=== PATIENT | female | born 1955 | race Caucasian/White ===

== ENCOUNTER 2016-07-01 11:40 | Inpatient (IN) | payer OTHER, MEDICAID ==
[~2016-07-01] VITALS: Ht 157.5 cm; Wt 67.8 kg
[~2016-07-01 11:40] MED LIST: ALBU18HF INH; ALBU8.5H2 INHALATION; ALPR0.5T8 PO; ASPI-973 PO; CLOTRIMAZOLE TOPICAL; ENOX40DI8 SUBQ; FUR20 PO; GLIM2TAB2 PO; HYDR-3825 PO; HYDR25TA4 PO; LISI-567 PO; METF1000 PO; OXYC-466 PO; PRAV40TA PO; SERT100T PO
[2016-07-01 11:46] VITALS: BP 79/53; PULSE 84; RESP 16; O2SAT 95
--- NOTE | 2016-07-01 12:49 | ED.REPORT ---
HPI-General Illness Date of Service Jul 01, 2016 ED Provider: Chi Brown MD The patient is a 61 year old female with history of diabetes mellitus, hypertension, cirrhosis, anxiety, depression, who presents to the emergency department from urgent care complaining of worsening generalized weakness. The patient had hip/femur surgery 3 months ago and has been declining since. She has also experienced balance issues. She is concerned because she lives alone and is unable to take care of herself. She has also noticed worsening abdominal distention and pain, and weight gain. She had an appointment with her doctor last week but her transportation did not show up. She has needed to have fluid drained from her abdomen in the past. She is unable to get in to see her regular doctor until late July. She denies fever, chills, nausea, vomiting, diarrhea, numbness, focal weakness, dysuria. Nursing Notes Stated Complaint: WEAKNESS Chief Complaint: General Complaint Nursing Notes Reviewed: Yes Allergies: Coded Allergies: No Known Allergies (Verified Allergy, Unknown, 07/01/16) Scheduled Amlodipine (Amlodipine) 2.5 Mg Tablet 2.5 MG PO DAILY Aspirin (Aspirin) 81 Mg Tablet 81 MG PO DAILY Furosemide (Furosemide) 20 Mg Tab 20 MG PO BID Hydrochlorothiazide (Hydrochlorothiazide) 25 Mg Tablet 25 MG PO DAILY Lisinopril (Lisinopril) 10 Mg Tablet 10 MG PO DAILY Metformin (Glucophage) 1,000 Mg Tablet 1,000 MG PO BID Pravastatin (Pravastatin) 40 Mg Tablet 40 MG PO HS Sertraline HCl (Sertraline) 100 Mg Tablet 200 MG PO HS Spironolactone (Spironolactone) 50 Mg Tablet 50 MG PO BID Tiotropium Basehor (Spiriva) 18 Mcg Cap.w.dev 18 MCG IH DAILY Scheduled PRN Albuterol HFA (Proair HFA) 8.5 Gm Hfa.aer.ad 2 PUFFS INHALATION Q4H PRN PRN For Shortness of Breath Alprazolam (Alprazolam) 0.5 Mg Tablet 0.25 MG PO QID PRN PRN For Anxiety oxyCODONE (oxyCODONE) 5 Mg Tablet 7.5 MG PO QID PRN PRN For Pain General Time Seen by MD: 12:40 Chief Complaint Weakness Hx Obtained From: Patient Arrived By: Walk-in Sudden in Onset?: No Onset Occurred: More than a week ago... Symptom Duration: Since onset Location: : Abdomen Quality: Painful Severity: Current: Moderate Severity: Maximum: Moderate Recent Healthcare: No recent doctor visit, No recent hospitalization Similar Sx Previous: Yes Past Medical History Past Medical History Notes: PCP: Dr. Sandy Past Medical History Anxiety Cirrhosis Hepatitis C Diffuse atherosclerotic burden. Reports: Diabetes mellitus, Hypertension, Stroke Reports: Depression Past Surgical History Kwesi's tumors bilaterally carotid endarterectomy, right Leg surgery Reports: Cholecystectomy, Hysterectomy Reports: Back/neck surgery Family History Noncontributory Smoking History Current Every Day Smoker, Light Tobacco Smoker Social History Alcohol Use: Denies alcohol use Drug Use: Denies drug use Other Social History: Lives alone, Local resident Ambulatory Status Independent Review of Systems +weight gain Full Review of Systems Constitutional: Reports: Weakness - generalized, Denies: Chills, Fever Respiratory: Denies: Non-productive cough, Shortness of breath Cardiovascular: Denies: Chest pain GI: Reports: Abdominal pain (and distention), Denies: Constipation, Diarrhea, Nausea, Vomiting Female: Denies: Dysuria Neurologic: Reports: Problem walking, Weakness, Denies: Focal weakness, Numbness Complete sys rev & neg: except as marked. Physical Exam Vital Signs Vital Signs Date Time Temp Pulse Resp B/P Pulse Ox O2 Delivery O2 Flow Rate FiO2 07/01/16 13:29 95 18 95/60 98 Room Air 07/01/16 11:46 37.0 84 16 79/53 95 Room Air Initial VS: Reviewed Head / Eyes: Atraumatic, Normocephalic, PERRL ENT: Mucous membranes moist, Conjunctiva normal, No scleral icterus Neck: Supple, Non-tender, Full range of motion Extremities: Vascular intact, Neuro intact, No tenderness Skin: Warm, Dry, No cyanosis Neurologic: Alert, Oriented, Nonfocal Psychiatric: Mood/affect normal, Behavior normal, Normal thought content General/Constitutional: Awake, Alert, Well appearing Respiratory / Chest: Atraumatic, Breath sounds NL, Breath sounds = bilat, No respiratory distress, No rales, No rhonchi, No wheezing spider angiomata to her chest diffusely Cardiovascular: Heart rate NL, Regular rhythm, Heart sounds NL, Cap refill not delayed, Peripheral circulation NL Lower Ext Edema: Positive: Bilateral 2+, Knee, Pitting Abdomen: No guarding, No rebound Tenderness/Guarding/Rebound: Positive: Tender diffuse (mild) Significant ascites with positive fluid wave Skin: Warm, Dry Color / Condition: Positive: Jaundice present Interpretation & Diagnostics Lab Results Interpretation Result Diagram: 07/01/16 1315 07/01/16 1315 Test 07/01/16 13:15 07/01/16 13:56 White Blood Count 8.8th/mm3 (3.8-10.1) Red Blood Count 4.53mil/mm3 (3.90-5.20) Hemoglobin 13.0g/dL (12.0-15.6) Hematocrit 37.9% (35.0-46.0) Mean Corpuscular Volume 83.7fL (81-100) Mean Corpuscular Hemoglobin 28.7pg (27.0-35.0) Mean Corpuscular Hemoglobin Concent 34.3% (32.0-37.0) Red Cell Distribution Width 17.1% (12.3-15.4) Platelet Count 209bil/L (150-400) Neutrophils (%) (Auto) 74.4% (40-74) Lymphocytes (%) (Auto) 15.9% (14-46) Monocytes (%) (Auto) 9.1% (4-12) Eosinophils (%) (Auto) 0.2% (0-5) Basophils (%) (Auto) 0.2% (0-3) Sodium Level 132mEq/L (134-144) Potassium Level 3.9mEq/L (3.5-5.2) Chloride Level 91mEq/L (97-108) Carbon Dioxide Level 26mmol/L (18-29) Blood Urea Nitrogen 62mg/dL (8-27) Creatinine 3.01mg/dL (0.57-1.00) Estimat Glomerular Filtration Rate 23mL/min (>59) Glucose Level 156mg/dL (60-99) Calcium Level 8.7mg/dL (8.5-10.1) Magnesium Level 1.8mg/dL (1.6-2.6) Total Bilirubin 0.5mg/dL (0.0-1.2) Aspartate Amino Transf (AST/SGOT) 51U/L (0-50) Alanine Aminotransferase (ALT/SGPT) 25U/L (0-32) Alkaline Phosphatase 97U/L (25-165) Total Protein 7.3g/dL (6.4-8.4) Albumin 2.6g/dL (3.4-5.0) Hold Vazquez Top Tube Received (Received) Prothrombin Time 12.2sec (8.1-12.5) Prothromb Time International Ratio 1.14ratio Ammonia 31ug/dL (18-53) Procedures Lab Results Interpretation Result Diagram: 07/01/16 1315 07/01/16 1315 Test 07/01/16 13:15 07/01/16 13:56 White Blood Count 8.8th/mm3 (3.8-10.1) Red Blood Count 4.53mil/mm3 (3.90-5.20) Hemoglobin 13.0g/dL (12.0-15.6) Hematocrit 37.9% (35.0-46.0) Mean Corpuscular Volume 83.7fL (81-100) Mean Corpuscular Hemoglobin 28.7pg (27.0-35.0) Mean Corpuscular Hemoglobin Concent 34.3% (32.0-37.0) Red Cell Distribution Width 17.1% (12.3-15.4) Platelet Count 209bil/L (150-400) Neutrophils (%) (Auto) 74.4% (40-74) Lymphocytes (%) (Auto) 15.9% (14-46) Monocytes (%) (Auto) 9.1% (4-12) Eosinophils (%) (Auto) 0.2% (0-5) Basophils (%) (Auto) 0.2% (0-3) Sodium Level 132mEq/L (134-144) Potassium Level 3.9mEq/L (3.5-5.2) Chloride Level 91mEq/L (97-108) Carbon Dioxide Level 26mmol/L (18-29) Blood Urea Nitrogen 62mg/dL (8-27) Creatinine 3.01mg/dL (0.57-1.00) Estimat Glomerular Filtration Rate 23mL/min (>59) Glucose Level 156mg/dL (60-99) Calcium Level 8.7mg/dL (8.5-10.1) Magnesium Level 1.8mg/dL (1.6-2.6) Total Bilirubin 0.5mg/dL (0.0-1.2) Aspartate Amino Transf (AST/SGOT) 51U/L (0-50) Alanine Aminotransferase (ALT/SGPT) 25U/L (0-32) Alkaline Phosphatase 97U/L (25-165) Total Protein 7.3g/dL (6.4-8.4) Albumin 2.6g/dL (3.4-5.0) Hold Vazqeuz Top Tube Received (Received) Prothrombin Time 12.2sec (8.1-12.5) Prothromb Time International Ratio 1.14ratio Ammonia 31ug/dL (18-53) Re-Eval/Medical Decision Med Decision/Clinical Course The patient is a 61-year-old female who presents to the emergency Department with complaints of generalized weakness worsening ascites, fatigue and difficulty caring for herself at home in the setting of recent hip surgery. Upon arrival she is afebrile and hemodynamically stable. Examination is notable for significant ascites and in the past she has had therapeutic paracentesis productive of 9 L of ascites fluid. LABS: CBC unremarkable, CMP: sodium 132, acute kidney injury with a BUN 62 and creatinine 3.01, glucose 156, mildly elevated transaminases, INR 1.14 At this time, my suspicion for spontaneous bacterial peritonitis is relatively low. I suspect that much of her symptoms are related to her profound ascites. I discussed with the patient performing diagnostic/therapeutic paracentesis at the bedside to explain that we would only be able to remove 4 L. I suspect that the patient will not achieve adequate symptom relief with only 4 L paracentesis and that she would likely benefit more from greater fluid removal in the inpatient setting with administration of albumin. We are not able to administer albumin here in the emergency department or do large volume paracentesis. Moreover, the patient has been having significant difficulty with ambulation in the setting of her recent surgery and has acute kidney injury further up. Her clinical picture. I feel that the patient requires admission for further workup and management. I discussed this with the hospitalist was in agreement. The patient was transferred in stable condition. Source of Hx: Old records Time of Eval: 13:58 Re-Evaluation/Progress Note: Discussed risks and benefits of the procedure. All questions were addressed. Time of Eval: 14:02 Re-Evaluation/Progress Note: Bedside ultrasound not working. Unable to complete procedure. Will admit. Consultation : Referral / Consult Name: Toi Velasco MD Consulted With: Hospitalist Call Returned at: 15:07 Licensed Marine Engineer: Will see patient, Agrees with eval, Agrees with plan, Accepts admit Counseled Regarding: Diagnosis, Lab results, Need for admission Discharge & Departure Primary Impression: Ascites Ascites type: other type Qualified Code: R18.8 - Other ascites Additional Impressions: Weakness generalized End stage liver disease Acute kidney injury Disposition: ADMITTED TO HOSPITAL Discharge Condition All VS Reviewed: Yes Condition: Stable Referrals: Deedee Sandy MD (PCP) Crit Care Except Billable Proc Time Spent: 75-104 minutes Services Performed: Patient management by me, Time spent at bedside, Reviewing test results, Reviewing imaging, Discussing patient care, Documentation in record, Time with fam/surrogate Scribe Attestation Portions of this note were transcribed by Erum Olivier. I, Dr. Brown personally performed the history, physical exam and medical decision-making; I reviewed and confirmed the accuracy of the information in the transcribed note. Signed by: Jacinda Zhang, 07/01/2016 and 1515. copies to: Deedee Sandy MD, Beck O MD Jul 01, 2016 12:49 Erum Olivier Jul 01, 2016 13:39
[2016-07-01 13:24] LABS: BASOPHILS % (AUTO) 0.2 % (0-3); EOSINOPHILS % (AUTO) 0.2 % (0-5); MONOCYTES % (AUTO) 9.1 % (4-12); Mean Corpuscular Hemoglobin 28.7 pg (27.0-35.0); Mean Corpuscular Volume 83.7 fL (81-100); NEUTROPHILS % (AUTO) 74.4 % (40-74); Platelet Count 209 bil/L (150-400)
[2016-07-01 13:29] VITALS: BP 95/60; PULSE 95; RESP 18; O2SAT 98
[2016-07-01 13:47] LABS: INR 1.13 ratio
[2016-07-01] MEDS ORDERED: HYDROmorphone 1 mg/mL Inj IVPUSH ONE (13:50)
[2016-07-01] MEDS ORDERED: Ondansetron 2 mg/mL 2 mL Inj IVPUSH ONE (13:50)
[2016-07-01 13:51] LABS: Magnesium 1.8 mg/dL (1.6-2.6)
[2016-07-01 14:32] LABS: INR 1.14 ratio
[2016-07-01] MEDS ORDERED: Alum-Mag Hydrox-Simeth 30 mL Suspension PO PRN (15:35)
[2016-07-01] MEDS ORDERED: Ondansetron 2 mg/mL 2 mL Inj IVPUSH PRN (15:35)
[2016-07-01] MEDS ORDERED: Polyethylene Glycol (PEG) 17 Gm Powder PO PRN (15:35)
[2016-07-01] MEDS ORDERED: SERT100T9 PO (15:59)
[2016-07-01] MEDS ORDERED: SPIR50TA2 PO (16:00)
[2016-07-01] MEDS ORDERED: OXYC5TAB72 PO (16:03)
[2016-07-01] MEDS ORDERED: LISI10TA PO (16:11)
[2016-07-01] MEDS ORDERED: AMLO2.5T PO (16:15)
[2016-07-01] MEDS ORDERED: TIOT18CA3 IH (16:16)
[2016-07-01] MEDS: HYDROmorphone 0.5 mg/0.5 mL iSecure Syringe IVPUSH PRN ×2 (17:30→22:55)
[2016-07-01] MEDS ORDERED: Glucose 40% Oral Gel 15 Gm Tube PO PRN (17:40)
[2016-07-01 17:41] VITALS: BP 109/69; PULSE 103; RESP 19; O2SAT 96
[2016-07-01 18:10] VITALS: PULSE 107
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
[2016-07-01 20:43] VITALS: BP 107/80; PULSE 105; RESP 16; O2SAT 95
--- NOTE | 2016-07-01 21:20 | PCM.HPMED ---
Subjective Date of Service Jul 01, 2016 Primary Provider: Admitting Physician: Primary Care Physician: Deedee Sandy MD Attending Physician: Admit Status: From the Emergency Department, Full Admit, Remote Telemetry Chief Complaint: Worsening generalized weakness History of Present Illness: Tayla Milan is a 61 year old female with Diabetes mellitus, hypertension, cirrhosis, anxiety, depression, who presents to the emergency department from urgent care complaining of worsening generalized weakness. The patient had hip/femur surgery 3 months ago and has been declining ever since. She has also experienced balance issues and some vertigo. She is concerned because she lives alone and is unable to take care of herself. She has also noticed worsening abdominal distention and pain (pain is 8/10 intensity , diffuse without any radiation, pain exacerbated by movement), and weight gain. She had an appointment with her doctor last week but her transportation did not show up. She has needed to have fluid drained from her abdomen in the past and recently had a paracentesis at the radiology department recently and had 9 liters out. She denies fever, chills, nausea, vomiting, diarrhea, numbness , focal weakness, dysuria. She is having loose stools. Case discussed with Dr Brown. He could not perform a paracentesis as the ultrasound machine in the ED was broken Review of Systems: Pertinent positives as noted in HPI. All other systems were reviewed and are negative Allergies Coded Allergies: No Known Allergies (Verified Allergy, Unknown, 07/01/16) Home Medications Tayla Milan [id number] 1955 07/01/2016 11:10 AM 07/08 ALBENDAZOLE alprazolam 0.25 mg tablet take 1 tablet by oral route 4 times every day PRN amlodipine 5 mg tablet take 1 tablet by oral route every day Aspirin Low Dose 81 mg tablet,delayed release take 1 tablet by oral route every day hydrochlorothiazide 12.5 mg capsule take 1 Capsule by oral route every day K-Tab 10 mEq tablet,extended release take 1 Tablet by oral route every day with food Lasix 20 mg tablet take 1 tablet by oral route every day lisinopril 40 mg Tab take 1 tablet (40MG) by oral route every day metformin 1,000 mg tablet take 1 tablet by oral route every day with morning and evening meals oxycodone-acetaminophen 7.5 mg-325 mg tablet take 1 tablet by oral route every 6 hours as needed Pravachol 40 mg tablet take 1 tablet by oral route every day ProAir HFA 90 mcg/actuation aerosol inhaler inhale 2 puff by inhalation route every 4 - 6 hours as needed Spiriva Respimat 1.25 mcg/actuation solution for inhalation inhale 2 puff by inhalation route every day spironolactone 50 mg tablet take 1 tablet by oral route every day Zoloft 50 mg tablet take 3 Tablet by oral route every day PMH Hypertension. Type 2 diabetes mellitus. Diffuse atherosclerotic burden. a. Nuclear medicine stress test (April 24, 2014) showed no evidence of myocardial ischemia or infarction; normal myocardial perfusion; LVEF 86% without segmental wall motion defects. b. Cerebrovascular disease. c. Peripheral arterial disease Severe cervical and lumbar degenerative disk disease with spinal stenoses. Chronic Hepatitis C with genotype 1, on ribavirin and Harvoni Liver cirrhosis . Surgical History Status post cholecystectomy. Status post hysterectomy. Status post multiple back surgeries. Family History Family history is positive for type 2 diabetes mellitus and coronary artery disease. Social History Hx Alcohol Use: No Hx Substance Use: No Hx Tobacco Use: Yes Smoking Status: Current Every Day Smoker, Light Tobacco Smoker Living Arrangement: Alone Exam Vital Signs Vital Sign - Last Date Time Temp Pulse Resp B/P Pulse Ox O2 Delivery O2 Flow Rate FiO2 07/01/16 13:29 95 18 95/60 98 Room Air 07/01/16 11:46 37.0 Exam General: Alert, Oriented X3, Cooperative, No acute Distress malnourished skinny woman Eyes: PERRLA, Scleral Anicteric Mouth: Mouth Normal, Mucous Membranes Moist/[place] Neck: Supple, no Thyromegaly, trachea central. Chest & Lungs: Clear to auscultation & percussion, No adventitious breath sounds, no crackles, no wheeze Cardiovascular: Normal S1, Normal S2, No Murmurs/Rubs/Gallops, Regular Rate/ Rhythm, Murmur, Other (No JVD, no peripheral edema) Pulses: Radial (present and equal), Dorsalis Pedi (present and equal) Abdomen: Soft, diffuse tender, + distended, Normoactive bowel tones. Musculoskeletal: Unremarkable. Normal range of motion, no swollen or erythematous joints Extremities: 2 + leg/foot edema, no cyanosis, no clubbing. Skin: No rashes. Warm and dry, no erythematous areas Neurological: Grossly neurologically intact, has generalized weakness, Normal Speech, Sensation Intact Lymphatic: Lymph nodes Cervical and Axillary not palpable. Lab and Diagnostics Labs Laboratory Tests Test 07/01/16 13:15 07/01/16 13:56 White Blood Count 8.8th/mm3 (3.8-10.1) Red Blood Count 4.53mil/mm3 (3.90-5.20) Hemoglobin 13.0g/dL (12.0-15.6) Hematocrit 37.9% (35.0-46.0) Mean Corpuscular Volume 83.7fL (81-100) Mean Corpuscular Hemoglobin 28.7pg (27.0-35.0) Mean Corpuscular Hemoglobin Concent 34.3% (32.0-37.0) Red Cell Distribution Width 17.1% (12.3-15.4) Platelet Count 209bil/L (150-400) Neutrophils (%) (Auto) 74.4% (40-74) Lymphocytes (%) (Auto) 15.9% (14-46) Monocytes (%) (Auto) 9.1% (4-12) Eosinophils (%) (Auto) 0.2% (0-5) Basophils (%) (Auto) 0.2% (0-3) Prothrombin Time 12.1sec (8.1-12.5) 12.2sec (8.1-12.5) Prothromb Time International Ratio 1.13ratio 1.14ratio Sodium Level 132mEq/L (134-144) Potassium Level 3.9mEq/L (3.5-5.2) Chloride Level 91mEq/L (97-108) Carbon Dioxide Level 26mmol/L (18-29) Blood Urea Nitrogen 62mg/dL (8-27) Creatinine 3.01mg/dL (0.57-1.00) Estimat Glomerular Filtration Rate 23mL/min (>59) Glucose Level 156mg/dL (60-99) Calcium Level 8.7mg/dL (8.5-10.1) Magnesium Level 1.8mg/dL (1.6-2.6) Total Bilirubin 0.5mg/dL (0.0-1.2) Aspartate Amino Transf (AST/SGOT) 51U/L (0-50) Alanine Aminotransferase (ALT/SGPT) 25U/L (0-32) Alkaline Phosphatase 97U/L (25-165) Total Protein 7.3g/dL (6.4-8.4) Albumin 2.6g/dL (3.4-5.0) Hold Vazquez Top Tube Received (Received) Ammonia 31ug/dL (18-53) Microbiology Result Diagram: 07/01/16 1315 07/01/16 1315 Assessment & Plan Tayla Milan is a 61 year old female with Diabetes mellitus, hypertension, cirrhosis, anxiety, depression, who presents to the emergency department from urgent care complaining of worsening generalized weakness. 1. Generalized weakness. Present on admission Likely multifactorial with Uremia due to acute renal failure, worsening cirrhosis or a infection. Malnutrition and failure to thrive could also be considered - treat underlying cause - Nutritional consult - Physical therapy and curtain worker consult 2. Worsening Ascites with acute on chronic abdominal pain due to Cirrhosis. Present on admission Low suspicion for Spontaneous bacterial peritonitis but will send peritoneal blood for analysis. She may need pleural X device to facilitate future paracentesis. Patient previously treated with ribavirin and Harvoni followed outpatient by Dr Duncan - nothing by mouth after midnight - ultrasound guided paracentesis planned for tomorrow - Dilaudid 0.5 mg IV q 4 hours PRN pain - no antibiotics is indicated at this time - recommend low sodium diet - consider GI consultation 3. Acute Kidney injury. Present on admission Could be pre renal azotemia from volume loss through diarrhea. Hepatorenal syndrome is also a concern - avoid nephrotoxic insults - holding diuretics as the patient is intravascular depleted - will consult Nephrology in the morning 4. Hypertension. Hypotensive on admission - holding Amlodipine 5 mg daily, Lisinopril 40 mg daily and HCTZ 5. Type 2 diabetes mellitus Glyburide will cause hypoglycemia as the patient is NPO for procedure and Metformin held to minimize possibility for lactic acidosis. - holding Glyburide and Metformin - low correction algorithm with Lispro 6. Chronic bronchitis related to ongoing tobacco abuse. Clinically without any symptoms of acute exacerbation such as change in sputum or coughing. - DuoNeb (albuterol 2.5 mg plus ipratropium 0.5 mg) by nebulizer as needed. - Symbicort 160/4.5 mcg two inhalations b.i.d. 7. Nicotine Dependence. Cessation was discussed and encouraged - Nicotine patch upon request - Acetaminophen as needed for mild pain/fever/headache - Bowel regimen as needed - Antiemetic as needed Patient admitted under inpatient status with expected length of stay > 2 midnights for severity of present symptoms, complexities of treatment plan and risk for adverse event . Resuscitation Status: CPR: Attempt Resuscitation Toi Velasco MD Jul 01, 2016 15:34
[2016-07-01] MEDS: Insulin LISPRO 300 Unit/3 mL Inj SUBQ SCH (22:00)
[2016-07-02] VITALS (18 sets, daily range): BP systolic 80–110; BP diastolic 42–69; PULSE 80–105; RESP 16–24; O2SAT 91–99
[2016-07-02] MEDS ORDERED: Albuterol 2.5 mg/3 mL Inhalation Solution NEB PRN (00:50)
--- NOTE | 2016-07-02 01:45 | NUR ---
Vitals Pt comfortable, pain and anxiety under control. Requesting to sleep without being disturbed, till next dose of pain meds due. Pt on tele, vitals have been stable. Vitals done at 2100, will recheck again at 0300. LAND MEASURER aware.
[2016-07-02] MEDS ORDERED: Albumin 25% 50 GM in IV Premix 1 EACH IV ONE (07:15)
[2016-07-02] MEDS: Insulin LISPRO 300 Unit/3 mL Inj SUBQ SCH ×4 (08:00→21:35)
[2016-07-02] MEDS: Tiotropium 18mcg/Cap 5 Capsule Inhaler Kit INHALATION SCH (08:30)
[2016-07-02] MEDS: HYDROmorphone 0.5 mg/0.5 mL iSecure Syringe IVPUSH PRN ×3 (09:23→23:41)
[2016-07-02] MEDS ORDERED: 0.9% Sodium Chloride 1,000 ML IV SCH (10:00)
[2016-07-02] MEDS ORDERED: 0.9% Sodium Chloride 250 ML ONE (10:01)
[2016-07-02] MEDS: Albumin 25% 25 GM in IV Premix 1 EACH IV ONE ×2 (10:19→11:32)
--- NOTE | 2016-07-02 10:55 | PCM.CHPMED ---
Subjective Date of Service: Jul 02, 2016 Provider requesting consult: Toi Velasco MD Primary Physician: Admitting Physician: Toi Velasco MD Primary Care Physician: Deedee Sandy MD Attending Physician: oTi Velasco MD Chief Complaint: Chief Complaint: NEPHROLOGY CONSULTATION Acute kidney injury History of Present Illness: This is a 61 year old woman with past medical history significant for DM2, hypertension, cirrhosis 2/2 chronic hepatitis C post treatment, and 3 month history of health decline after her hip surgery 3 month ago who presented to the [facility] ED due to weakness and worsening ascites. The nephrology service is consulted due to acute kidney injury. The patient is a poor historian and unsure of much of her history. She has noticed that after he hip surgery she has had worsening issues with fluid and has had increasing abdominal distention and has gained weight. The patient has had one paracentesis, she is unsure when , but the records suggest May 27 2016. No fluid studies are available. The patient has recently had her diuretics adjusted recently. Her lasix has been increased to 40 mg daily. She is also on spironolactone 50 mg, HCTZ 12.5 mg. The patient denies any fevers, chills, nausea, or vomiting. She noted some diarrhea. She denies any dysuria or decreased urine output. The patient is very distressed and tearful. Review of Systems: ROS is negative except as noted above in the HPI. PMH Past Medical History Hypertension. Type 2 diabetes mellitus. Diffuse atherosclerotic burden. a. Nuclear medicine stress test (April 24, 2014) showed no evidence of myocardial ischemia or infarction; normal myocardial perfusion; LVEF 86% without segmental wall motion defects. b. Cerebrovascular disease. c. Peripheral arterial disease Severe cervical and lumbar degenerative disk disease with spinal stenoses. Chronic Hepatitis C with genotype 1, on ribavirin and Harvoni Liver cirrhosis Bedside Blood Glucose: 139 Surgical History Status post cholecystectomy. Status post hysterectomy. Status post multiple back surgeries. Home Medications Tayla Milan [phone] 1955 07/01/2016 11:10 AM 07/08 ALBENDAZOLE alprazolam 0.25 mg tablet take 1 tablet by oral route 4 times every day PRN amlodipine 5 mg tablet take 1 tablet by oral route every day Aspirin Low Dose 81 mg tablet,delayed release take 1 tablet by oral route every day hydrochlorothiazide 12.5 mg capsule take 1 Capsule by oral route every day K-Tab 10 mEq tablet,extended release take 1 Tablet by oral route every day with food Lasix 20 mg tablet take 1 tablet by oral route every day lisinopril 40 mg Tab take 1 tablet (40MG) by oral route every day metformin 1,000 mg tablet take 1 tablet by oral route every day with morning and evening meals oxycodone-acetaminophen 7.5 mg-325 mg tablet take 1 tablet by oral route every 6 hours as needed Pravachol 40 mg tablet take 1 tablet by oral route every day ProAir HFA 90 mcg/actuation aerosol inhaler inhale 2 puff by inhalation route every 4 - 6 hours as needed Spiriva Respimat 1.25 mcg/actuation solution for inhalation inhale 2 puff by inhalation route every day spironolactone 50 mg tablet take 1 tablet by oral route every day Zoloft 50 mg tablet take 3 Tablet by oral route every day Allergies: Coded Allergies: No Known Allergies (Verified Allergy, Unknown, 07/01/16) Social History Hx Alcohol Use: NoHx Substance Use: NoHx Tobacco Use: Yes Smoking Status: Current Every Day Smoker Light Tobacco Smoker Living Arrangement: Alone Exam Vital Signs Vital Sign - Last Date Time Temp Pulse Resp B/P Pulse Ox O2 Delivery O2 Flow Rate FiO2 07/02/16 06:08 36.5 92 16 103/61 97 Room Air Intake and Output 07/01/16 07/01/16 07/02/16 Cumulative From/Thru 15:00 23:00 07:00 07/01/16 11:46 - 07/02/16 06:07 Intake Total 400 ml 400 ml Output Total 0 ml 0 ml Balance 400 ml 400 ml Intake Oral 400 ml 400 ml Output Urine Total 0 ml 0 ml # Bowel Movements 0 0 General: Alert, Oriented X3, Cooperative, Mild Distress Head: Normal Eyes: PERRLA, EOMI Mouth: Mucous Membranes Dry Neck: Other (skin tenting) Chest & Lungs: Clear to auscultation & percussion Cardiovascular: Normal S1, Normal S2, Other (tachycardic) Abdomen: Tender (mild, diffuse), Distended, Normoactive bowel tones, Tympanitic , Soft Genitourinary: [place] Absent Extremities: Other (skin wrinkling on bilateral extremities ) Neurological: Grossly Neurologically Intact, Cranial Nerves 2-12 Intact Lab and Diagnostics Result Diagram: 07/01/16 1315 07/02/16 0525 Assessment & Plan Assessment This is a 61 year old woman with past medical history significant for DM2, hypertension, cirrhosis 2/2 chronic hepatitis C post treatment, and 3 month history of health decline after her hip surgery 3 month ago who presented to the [facility] ED due to weakness and worsening ascites. Acute kidney injury -Baseline Cr normal -Etiology likely due to prerenal azotemia from significant diuresis, patient is very dry on exam -Differential includes ATN, hepatorenal syndrome -UA, urine sodium, urine creatinine, urine protein -Paracentesis today, recommend fluid studies -If patient's Cr worsens despite repletion of fluid status would argue more towards hepatorenal syndrome -agree with albumin infusion per hospitalist team but would start NS at 80 cc/ hr after that -patient is intravascularly depleted judging by UA Hypovolemic hyponatremia -Secondary to aggressive diuretics -Although there is likely a chronic component of hypervolemic hyponatremia secondary to cirrhosis -continue to monitor Thank you for allowing us to participate in the care of this patient. Problems: VTE Mechanical Devices: Intermittant Pneumatic CD Resuscitation Status: CPR: Attempt Resuscitation Michelle Graves DO Jul 02, 2016 10:55 Aleena Neil MD Jul 03, 2016 09:52
--- NOTE | 2016-07-02 11:24 | NUR ---
NUTRITION ASSESSMENT: ASSESS: 61YO F admit with DEYSI, ascites, nephrology consulted. PMHX: Cirrhosis, DM, CVA, HTN,Arthritis,COPD DIET: Heart Healthy, Diabetic. PO bites x 1 meal LABS: Reviewed. Alb 2.3, Ca 8.3, A1c 6.9, Cr 3.45, BUN 66, Glu 139 MEDS: Reviewed GI: 0 BM WEIGHT: 77.2kg BMI: 31.0 =Obese (admit:70kg) EST.NEEDS:2790-5713 kcal; 40-55g pro (30-35kcal/kg; 0.6-0.8g/kg) Acute Kidney Injury as renal labs improve: 85-105g pro (1.2-1.5g/kg pro) COPD/CIRRHOSIS/OBESITY NUTRITION DIAGNOSIS: (1) Increased energy needs related to increased demand for nutrients as evidenced by Cirrhosis/COPD. (2) Altered nutrition related laboratory values related to acute kidney injury as evidenced by elevated BUN/creatinine. INTERVENTION: (1) Recommend diet modification to renal diet pending renal lab trends. Continue diabetic heart healthy diet for now. MONITOR/EVALUATE: PO intake, lab values, diet modification. F/U per moderate risk.
--- NOTE | 2016-07-02 11:33 | NUR ---
DELAY ALBUMIN Delay is due to use of improper tubing, corrected and infusing properly.
[2016-07-02 12:10] LABS: APPEARANCE,URINE HAZY (CLEAR,HAZY); COLOR,URINE DARK YELLOW (YELLOW); OCCULT BLOOD,URINE TRACE (NEGATIVE); PH,URINE 5.5 (5.0-8.0); UROBILINOGEN,URINE NORMAL (NORMAL)
[2016-07-02] MEDS: 0.9% Sodium Chloride 1,000 ML IV SCH ×2 (13:05→22:56)
--- NOTE | 2016-07-02 13:21 | PCM.PNMED ---
Subjective Date of Service Jul 02, 2016 Subjective Awaiting paracenteses. Renal function continues to worsen. Denies fever. Denies urinary complaint Exam Vital Signs Vital Sign - Last Date Time Temp Pulse Resp B/P Pulse Ox O2 Delivery O2 Flow Rate FiO2 07/02/16 11:55 36.9 95 20 102/62 07/02/16 11:10 94 Room Air Intake and Output 07/01/16 07/01/16 07/02/16 Cumulative From/Thru 15:00 23:00 07:00 07/01/16 11:46 - 07/02/16 06:07 Intake Total 400 ml 400 ml Output Total 0 ml 0 ml Balance 400 ml 400 ml Intake Oral 400 ml 400 ml Output Urine Total 0 ml 0 ml # Bowel Movements 0 0 Exam General: Alert, Oriented X3, Cooperative, No acute Distress malnourished skinny woman Eyes: PERRLA, Scleral Anicteric Mouth: Mouth Normal, Mucous Membranes Moist/[place] Neck: Supple, no Thyromegaly, trachea central. Chest & Lungs: Clear to auscultation & percussion, No adventitious breath sounds, no crackles, no wheeze Cardiovascular: Normal S1, Normal S2, No Murmurs/Rubs/Gallops, Regular Rate/ Rhythm, Murmur, Other (No JVD, no peripheral edema) Pulses: Radial (present and equal), Dorsalis Pedi (present and equal) Abdomen: Soft, diffuse tender, + distended, huge ascites. Normoactive bowel tones. Musculoskeletal: Unremarkable. Normal range of motion, no swollen or erythematous joints Extremities: 2 + leg/foot edema, no cyanosis, no clubbing. Skin: No rashes. Warm and dry, no erythematous areas Neurological: Grossly neurologically intact, has generalized weakness, Normal Speech, Sensation Intact Lymphatic: Lymph nodes Cervical and Axillary not palpable. IVs and Medications Medications Reviewed: Medications were reviewed in detail Lab and Diagnostics Result Diagram: 07/01/16 1315 07/02/16 0525 Assessment & Plan Tayla Milan is a 61 year old female with Diabetes mellitus, hypertension, cirrhosis, anxiety, depression, who presents to the emergency department from urgent care complaining of worsening generalized weakness. #. Acute Kidney injury. Present on admission -Could be pre renal azotemia from volume loss through diarrhea. Hepatorenal syndrome is also a concern -Baseline creatinine 0.3, creatinine 3.45 now - will give albumin challenge, 1 g/kg. will also start NS at 80ml/h - avoid nephrotoxic insults - holding diuretics as the patient is intravascular depleted - consulted Nephrology # . Worsening Ascites with acute on chronic abdominal pain due to Cirrhosis. Present on admission Low suspicion for Spontaneous bacterial peritonitis but will send peritoneal blood for analysis. She may need pleural X device to facilitate future paracentesis. Patient previously treated with ribavirin and Harvoni followed outpatient by Dr Duncan - ultrasound guided paracentesis planned for today - Dilaudid 0.5 mg IV q 4 hours PRN pain - will start ceftriaxone for UTI - recommend low sodium diet # UTI -Asymptomatic, pyuria in urine -Urine culture sent - will start ceftriaxone #. Generalized weakness. Present on admission Likely multifactorial with Uremia due to acute renal failure, worsening cirrhosis ,UTI,dehydration - treat underlying cause #. Hypertension. Hypotensive on admission - holding Amlodipine 5 mg daily, Lisinopril 40 mg daily and HCTZ #. Type 2 diabetes mellitus Glyburide will cause hypoglycemia as the patient is NPO for procedure and Metformin held to minimize possibility for lactic acidosis. - holding Glyburide and Metformin - low correction algorithm with Lispro #. Chronic bronchitis related to ongoing tobacco abuse. Clinically without any symptoms of acute exacerbation such as change in sputum or coughing. - DuoNeb (albuterol 2.5 mg plus ipratropium 0.5 mg) by nebulizer as needed. - Symbicort 160/4.5 mcg two inhalations b.i.d. #. Nicotine Dependence. Cessation was discussed and encouraged - Nicotine patch upon request Disposition: Anticipate discharge 2-3 days VTE Mechanical Devices: Intermittant Pneumatic CD Resuscitation Status: CPR: Attempt Resuscitation Ilan Maki MD Jul 02, 2016 13:21
--- NOTE | 2016-07-02 15:26 | NUR ---
Social Work Screen Note Data & Assessment: EMR Reviewed. Patient is a 61 y/o female that admitted for ESLD, Ascites and Weakness. Patient's insurance is listed as [employer] and [employer]. Per the patient's H&P the patient lives home alone. Patient's chart states that she does have a POA, but there is no copy on file. Patient's NOK is listed as Leonid Leon [phone]. In rounds it was discussed that patient has a paracentesis scheduled and a neuro consult. SW will continue to follow patient. Plan: It is likely the to patient will discharge home. [employer] will continue to follow patient. Kiara Dewey, JAYLEN, ACM
--- NOTE | 2016-07-02 16:40 | NUR ---
TERI PARACENTESIS ULTRASOUND HERE AND PLACED NEEDLE FOR PROCEDURE. 3500ML ASCITES FLUID OBTAINED. PT AND HER NURSING CARE WERE TRANSFERRED BACK TO ROOM 1008 AT 1635 AND RN TO RN BEDSIDE HAND OFF WAS DONE AND REPORT GIVEN TO ABY Delong RN AND DEBRA Webster RN.
--- NOTE | 2016-07-02 17:12 | NUR ---
RETURN TO UNIT Patient arrived from [facility] via wheelchair at 1640. Able to transfer to bed with minimal assistance, denied nausea and vomiting. Reported 9/10 pain level,Given report from [facility]. Patient given Dilaudid for pain and 100ml of Albumin at 60ml/hr per order.
[2016-07-02] MEDS: ALPRAZolam 0.5 mg Tablet PO PRN (18:18)
[2016-07-02 18:46] LABS: BFWBC 43 /mm3; MONOCYTES,BODY FLUID 18 %; OTHER CELLS,BODY FLUID 35
[2016-07-02] MEDS: cefTRIAXone Inj 1,000 MG in IV Premix 1 EACH IV SCH (21:00)
[2016-07-03] VITALS (7 sets, daily range): BP systolic 107–125; BP diastolic 52–61; PULSE 78–110; RESP 16–20; O2SAT 94–97
[2016-07-03] MEDS: HYDROmorphone 0.5 mg/0.5 mL iSecure Syringe IVPUSH PRN ×5 (05:08→23:17)
--- NOTE | 2016-07-03 05:18 | NUR ---
; paracentesis site dsg c/d/i. Voided 400cc dark janae urine this morning. Up to bsc with one assist.
[2016-07-03] MEDS: Insulin LISPRO 300 Unit/3 mL Inj SUBQ SCH ×4 (08:00→21:07)
[2016-07-03 08:01] LABS: BASOPHILS % (AUTO) 0.3 % (0-3); MONOCYTES % (AUTO) 9.8 % (4-12); Mean Corpuscular Hemoglobin 28.2 pg (27.0-35.0); Mean Corpuscular Volume 84.8 fL (81-100); NEUTROPHILS % (AUTO) 72.3 % (40-74); Platelet Count 135 bil/L (150-400)
[2016-07-03 08:22] LABS: Magnesium 1.9 mg/dL (1.6-2.6); Phosphorus 4.1 mg/dL (2.5-4.9)
[2016-07-03] MEDS: Tiotropium 18mcg/Cap 5 Capsule Inhaler Kit INHALATION SCH (08:34)
[2016-07-03] MEDS ORDERED: Albumin 25% 25 GM in IV Premix 1 EACH IV ONE (08:50)
--- NOTE | 2016-07-03 09:14 | DRSVH ---
PROCEDURE: US GUIDED PARACENTESIS, PRIMARY ([id number]) INDICATIONS: increasing abd distension TECHNIQUE: The indications, alternatives, benefits, risks, and complications of the procedure were explained to the patient. Written informed consent was obtained and placed in the chart. The abdomen and pelvis were examined sonographically, and an appropriate site was chosen for paracentesis. The skin was pre pared and draped in the usual sterile fashion, and 1% lidocaine was infiltrated from the skin down th rough the peritoneal surface. A 19-gauge catheter-covered needle was then introduced into the perito sharla space, the catheter was advanced and the needle was withdrawn, and thereafter peritoneal fluid w as withdrawn. The catheter was then removed and a dressing was applied. The fluid was discarded if the clinician did not order diagnostic testing of the fluid. The attending physician was present, an d personally performed the procedure. COMPARISON: [facility], [place], US GUIDED PARACENTESIS, 05/27/2016, 12:50. FINDINGS: Access site: Midline pelvis Needle: One-Step centesis catheter with introducer needle. Fluid volume and description: 3.6 L of clear peritoneal fluid. Fluid sent for diagnostic testing: Fluid sent for cytology, multiple chemistry panels and therapeutic drainage. Medications: 1% lidocaine for local anaesthesia. Complications: None. IMPRESSION: Successful ultrasound-guided paracentesis. Dictated by: Gunner GARCIA Interpreted: Samantha Dominguez MD on 07/03/2016 at 9:13 Transcribed by: CESIA on 07/03/2016 at 9:13 Approved by: Samantha Dominguez MD, PhD on 07/03/2016 at 16:12
--- NOTE | 2016-07-03 10:59 | PCM.PNMED ---
Subjective Date of Service Jul 03, 2016 Subjective NEPHROLOGY PROGRESS NOTE The patient had 3.5 L out with her paracentesis yesterday, no complications were noted. She feels much better today and states her abdomen is much less distended. She was able to urinate this morning. Exam Vital Signs Vital Sign - Last Date Time Temp Pulse Resp B/P Pulse Ox O2 Delivery O2 Flow Rate FiO2 07/03/16 08:18 78 16 97 Room Air 07/03/16 06:07 36.3 107/52 Intake and Output 07/02/16 07/02/16 07/03/16 Cumulative From/Thru 14:59 22:59 06:59 07/01/16 11:46 - 07/03/16 06:07 Intake Total 1424 ml 1056 ml 2880 ml Output Total 4000 ml 400 ml 4400 ml Balance -2576 ml 656 ml -1520 ml Intake Oral 1156 ml 536 ml 2092 ml IV Total 268 ml 520 ml 788 ml Output Urine Total 500 ml 400 ml 900 ml Other 3500 ml 3500 ml # Bowel Movements 0 0 Exam General: Alert, Oriented X3, Cooperative, Mild Distress Head: Normal Eyes: PERRLA, EOMI Mouth: Mucous Membranes Dry Neck: Other (skin tenting although improved) Chest & Lungs: Clear to auscultation & percussion Cardiovascular: Normal S1, Normal S2, RRR Abdomen: Tender (mild, diffuse), Distended although improved from yesterday, Normoactive bowel tones, Tympanitic, Soft Genitourinary: [place] Absent Extremities: Other (skin wrinkling on bilateral extremities, improved since yesterday) Neurological: Grossly Neurologically Intact, Cranial Nerves 2-12 Intact IVs and Medications Medications Reviewed: Medications were reviewed in detail Lab and Diagnostics Result Diagram: 07/03/1672907/03/16 0730 Assessment & Plan This is a 61 year old woman with past medical history significant for DM2, hypertension, cirrhosis 2/2 chronic hepatitis C post treatment, and 3 month history of health decline after her hip surgery 3 month ago who presented to the [facility] ED due to weakness and worsening ascites. Acute kidney injury -Baseline Cr normal -Etiology likely due to prerenal azotemia from significant diuresis, patient is very dry on exam -Differential includes hepatorenal syndrome, however given improvement with intravascular repletion more suggestive of prerenal azotemia -Patient continues to be dry on exam although improved today -Paracentesis done yesterday, reducing the intraabdominal pressure and subsequently the pressure on her kidneys which may also be contributing to improvement -continue NS at 80 cc/hr for today, reassess tomorrow Decompensated Cirrhosis -Would continue to hold Lasix -Would restart spironolactone at 50 mg in AM and 25 mg in PM -Would consider repeat abdominal imaging, unclear as to why the patient is suddenly decompensating -Concern for development of HCC -No evidence of SBP Hypovolemic hyponatremia, unchanged -Secondary to aggressive diuretics -Although there is likely a chronic component of hypervolemic hyponatremia secondary to cirrhosis -continue to monitor We will continue to follow along with you. VTE Mechanical Devices: Intermittant Pneumatic CD Resuscitation Status: CPR: Attempt Resuscitation Attending Statement Nephrology attending: Patient was seen and examined along with the internal medicine resident today. We have discussed the findings and these are included in the note above. At this point I would like to continue cautious IV hydration and I would also like to increase her spironolactone to 50 mg in the morning and 25 mg in the evening. I would also recommend holding her Lasix for now. She may require another paracentesis in the next 1-2 days. Impression #1 acute kidney injury secondary to dehydration #2 dehydration #3 osteoporosis #4 hepatitis C #5 hyponatremia. Michelle Graves DO Jul 03, 2016 10:59 Vega Kim DO Jul 03, 2016 11:07
--- NOTE | 2016-07-03 13:37 | PCM.PNMED ---
Subjective Date of Service Jul 03, 2016 Subjective Had paracentesis 07/02. 3.5 L ascitic fluid removed. Negative for SBP. Distention/discomfort significantly improved as per patient. Received 75 g albumin 07/02. Will give 25 g. Creatinine Slightly improved. Urine culture growing > 100,000 GNRs. Exam Vital Signs Vital Sign - Last Date Time Temp Pulse Resp B/P Pulse Ox O2 Delivery O2 Flow Rate FiO2 07/03/16 11:04 36.8 95 20 125/61 97 Room Air Intake and Output 07/02/16 07/02/16 07/03/16 Cumulative From/Thru 15:00 23:00 07:00 07/01/16 11:46 - 07/03/16 06:07 Intake Total 1424 ml 1056 ml 2880 ml Output Total 4000 ml 400 ml 4400 ml Balance -2576 ml 656 ml -1520 ml Intake Oral 1156 ml 536 ml 2092 ml IV Total 268 ml 520 ml 788 ml Output Urine Total 500 ml 400 ml 900 ml Other 3500 ml 3500 ml # Bowel Movements 0 0 Exam General: Alert, Oriented X3, Cooperative, No acute Distress malnourished skinny woman Eyes: PERRLA, Scleral Anicteric Mouth: Mouth Normal, Mucous Membranes Moist/[place] Neck: Supple, no Thyromegaly, trachea central. Chest & Lungs: Clear to auscultation & percussion, No adventitious breath sounds, no crackles, no wheeze Cardiovascular: Normal S1, Normal S2, No Murmurs/Rubs/Gallops, Regular Rate/ Rhythm, Murmur, Other (No JVD, no peripheral edema) Pulses: Radial (present and equal), Dorsalis Pedi (present and equal) Abdomen: Soft, diffuse tender, + distended, huge ascites. Normoactive bowel tones. Musculoskeletal: Unremarkable. Normal range of motion, no swollen or erythematous joints Extremities: 2 + leg/foot edema, no cyanosis, no clubbing. Skin: No rashes. Warm and dry, no erythematous areas Neurological: Grossly neurologically intact, has generalized weakness, Normal Speech, Sensation Intact Lymphatic: Lymph nodes Cervical and Axillary not palpable. IVs and Medications Medications Reviewed: Medications were reviewed in detail Lab and Diagnostics Result Diagram: 07/03/16 0730 07/03/16 0730 Assessment & Plan Tayla Milan is a 61 year old female with Diabetes mellitus, hypertension, cirrhosis, anxiety, depression, who presents to the emergency department from urgent care complaining of worsening generalized weakness. #. Acute Kidney Injury . Present on admission -Could be pre renal azotemia from volume loss through diarrhea. Hepatorenal syndrome is also a concern -Baseline creatinine 0.3, initial 3.45 ,3.31 today -Received 75 g albumin 07/02,also on NS at 80ml/h.will give 25gm albumin today , patient clinically dry - avoid nephrotoxic insults - holding diuretics as the patient is intravascular depleted, nephrology planning to restart Aldactone - consulted Nephrology # . Worsening Ascites with acute on chronic abdominal pain due to Cirrhosis. Present on admission -negative for SBP. She may need pleureX device to facilitate future paracentesis. Patient previously treated with ribavirin and Harvoni followed outpatient by Dr Duncan - ultrasound guided paracentesis 07/02,3.5 L fluid removed - Dilaudid 0.5 mg IV q 4 hours PRN pain - on ceftriaxone for UTI # UTI -Asymptomatic, pyuria in urine -Urine culture > 100,000GNRs - on ceftriaxone # thrombocytosis due to cirrhosis -stable #. Generalized weakness. Present on admission Likely multifactorial with Uremia due to acute renal failure, worsening cirrhosis ,UTI,dehydration - treat underlying cause #. Hypertension. Hypotensive on admission - holding Amlodipine 5 mg daily, Lisinopril 40 mg daily and HCTZ #. Type 2 diabetes mellitus Glyburide will cause hypoglycemia as the patient is NPO for procedure and Metformin held to minimize possibility for lactic acidosis. - holding Glyburide and Metformin - low correction algorithm with Lispro #. Chronic bronchitis related to ongoing tobacco abuse. Clinically without any symptoms of acute exacerbation such as change in sputum or coughing. - DuoNeb (albuterol 2.5 mg plus ipratropium 0.5 mg) by nebulizer as needed. - Symbicort 160/4.5 mcg two inhalations b.i.d. #. Nicotine Dependence. Cessation was discussed and encouraged - Nicotine patch upon request Disposition: Anticipate discharge 1-2days VTE Mechanical Devices: Intermittant Pneumatic CD Resuscitation Status: CPR: Attempt Resuscitation Ilan Maki MD Jul 03, 2016 13:37
[2016-07-03] MEDS: 0.9% Sodium Chloride 1,000 ML IV SCH (14:32)
--- NOTE | 2016-07-03 15:44 | NUR ---
AGITATED/PAIN Patient is agitated about being in the hospital, being short with staff during care. Pain is being well controlled with IV dilaudid every 4 hours. Stated abdominal felt better today after paracentesis yesterday. 1 person assist to BSC with FWW. Voiding dark janae urine.
--- NOTE | 2016-07-03 16:32 | NUR ---
Social Work discharge Planning Note Data & Assessment: linotype worker spoke with patient and patient's sister, Ailyn Carrillo [phone], to discuss discharge planning. Prior to admission patient was home with her daughter and patient is likely to discharge home alone or with one of her daughters if they agree to have her in their home. Patient's sister, Mrs. Carrillo, will talk with the patient's daughters about the possibility of the patient discharging to their home. Patient will discharge home with [facility]. [facility] is in network with the patient's [place] [employer]. Patient's sister Ailyn Carrillo should be called if the patient is discharging. SW will continue to follow. Plan: Patient likely to discharge home alone or home with one of her daughters. Patient will have HH when discharged. SW will continue to follow. Kiara Dewey LMSW, ACM
[2016-07-03] MEDS: cefTRIAXone Inj 1,000 MG in IV Premix 1 EACH IV SCH (16:38)
[2016-07-04] VITALS (10 sets, daily range): BP systolic 108–146; BP diastolic 62–83; PULSE 89–103; RESP 14–18; O2SAT 94–98
[2016-07-04] MEDS: 0.9% Sodium Chloride 1,000 ML IV SCH ×2 (04:36→16:08)
--- NOTE | 2016-07-04 05:06 | NUR ---
Mentation At beginning of shift patient appeared to be confused as to what time of the day it was. Patient thought that it was 9am, not 9pm. After reorienting patient a few times, pt was able to be reoriented. Patient has been pleasant throughout the shift, and has been able to sleep the majority of it. Will continue to monitor mentation status, and continue Q1 hr checks.
[2016-07-04] MEDS: Insulin LISPRO 300 Unit/3 mL Inj SUBQ SCH ×4 (08:00→21:00)
[2016-07-04] MEDS: Tiotropium 18mcg/Cap 5 Capsule Inhaler Kit INHALATION SCH (08:17)
[2016-07-04] MEDS: HYDROmorphone 0.5 mg/0.5 mL iSecure Syringe IVPUSH PRN ×2 (08:25→20:58)
--- NOTE | 2016-07-04 11:14 | PCM.PNMED ---
Subjective Date of Service Jul 04, 2016 Subjective Patient's abdominal girth continues to enlarge. Unfortunately as levofloxacin morning none of her morning lab is back. The posterior cervical 100 mils of urine out in the last 24 hours and a +100 mL spot since midnight. She denies any chest pain shortness of breath nausea or vomiting. Exam Vital Signs Vital Sign - Last Date Time Temp Pulse Resp B/P Pulse Ox O2 Delivery O2 Flow Rate FiO2 07/04/16 10:38 36.5 98 16 141/81 98 Room Air Intake and Output 07/03/16 07/03/16 07/04/16 Cumulative From/Thru 15:00 23:00 07:00 07/01/16 11:46 - 07/04/16 06:11 Intake Total 1888 ml 768 ml 5536 ml Output Total 310 ml 400 ml 5110 ml Balance 1578 ml 368 ml 426 ml Intake Oral 960 ml 768 ml 3820 ml IV Total 928 ml 1716 ml Output Urine Total 310 ml 400 ml 1610 ml Other 3500 ml # Voids 3 3 # Bowel Movements 0 0 Exam Neck is supple without adenopathy, thyromegaly, or jugular venous distention. Lungs are clear load breath sounds are diminished with a soft systolic murmur. Abdomen is distended with some mild tympany noted and the abdomen is somewhat tense. She was transiently clubbing cyanosis or edema. Lab and Diagnostics Result Diagram: 07/03/1672907/03/16729 Assessment & Plan Impression #1 acute kidney injury #2 hyponatremia #3 ascites Recommendations #1 field that most likely the patient will benefit from a large volume paracentesis and approximately 1-2 days and we can coordinate that through GI and radiology. VTE Mechanical Devices: Intermittant Pneumatic CD Resuscitation Status: CPR: Attempt Resuscitation Vega Kim DO Jul 04, 2016 11:14
[2016-07-04] MEDS: ALPRAZolam 0.5 mg Tablet PO PRN (11:18)
[2016-07-04 11:29] LABS: Magnesium 1.6 mg/dL (1.6-2.6); Phosphorus 3.3 mg/dL (2.5-4.9)
[2016-07-04 11:33] LABS: BASOPHILS % (AUTO) 0.3 % (0-3); EOSINOPHILS % (AUTO) 1.2 % (0-5); MONOCYTES % (AUTO) 8.4 % (4-12); Mean Corpuscular Hemoglobin 28.6 pg (27.0-35.0); Mean Corpuscular Volume 84.1 fL (81-100); NEUTROPHILS % (AUTO) 78.5 % (40-74); Platelet Count 126 bil/L (150-400)
--- NOTE | 2016-07-04 13:08 | PCM.PNMED ---
Subjective Date of Service Jul 04, 2016 Subjective Kidney function continues to improve On IV fluids and albumin. Nephrology recommending large volume paracenteses in 1-2 days. Exam Vital Signs Vital Sign - Last Date Time Temp Pulse Resp B/P Pulse Ox O2 Delivery O2 Flow Rate FiO2 07/04/16 10:38 36.5 98 16 141/81 98 Room Air Intake and Output 07/03/16 07/03/16 07/04/16 Cumulative From/Thru 15:00 23:00 07:00 07/01/16 11:46 - 07/04/16 06:11 Intake Total 1888 ml 768 ml 5536 ml Output Total 310 ml 400 ml 5110 ml Balance 1578 ml 368 ml 426 ml Intake Oral 960 ml 768 ml 3820 ml IV Total 928 ml 1716 ml Output Urine Total 310 ml 400 ml 1610 ml Other 3500 ml # Voids 3 3 # Bowel Movements 0 0 Exam General: Alert, Oriented X3, Cooperative, No acute Distress malnourished skinny woman Eyes: PERRLA, Scleral Anicteric Mouth: Mouth Normal, Mucous Membranes Moist/[place] Neck: Supple, no Thyromegaly, trachea central. Chest & Lungs: Clear to auscultation & percussion, No adventitious breath sounds, no crackles, no wheeze Cardiovascular: Normal S1, Normal S2, No Murmurs/Rubs/Gallops, Regular Rate/ Rhythm, Murmur, Other (No JVD, no peripheral edema) Pulses: Radial (present and equal), Dorsalis Pedi (present and equal) Abdomen: Soft, diffuse tender, + distended, huge ascites. Normoactive bowel tones. Musculoskeletal: Unremarkable. Normal range of motion, no swollen or erythematous joints Extremities: 2 + leg/foot edema, no cyanosis, no clubbing. Skin: No rashes. Warm and dry, no erythematous areas Neurological: Grossly neurologically intact, has generalized weakness, Normal Speech, Sensation Intact Lymphatic: Lymph nodes Cervical and Axillary not palpable. IVs and Medications Medications Reviewed: Medications were reviewed in detail Lab and Diagnostics Result Diagram: 07/04/16 1048 07/04/16 1048 Assessment & Plan Tayla Milan is a 61 year old female with Diabetes mellitus, hypertension, cirrhosis, anxiety, depression, who presents to the emergency department from urgent care complaining of worsening generalized weakness. #. Acute Kidney Injury . Present on admission -Combination of pre renal azotemia from volume loss through diarrhea and diuretics. Hepatorenal syndrome is also a concern -Baseline creatinine 0.3, initial 3.45 , 2.8 today -Received 75 g albumin 07/02,also on NS at 80ml/h.will give 25gm albumin 07/03, - avoid nephrotoxic insults -Nephrology recommending large volume paracenteses in 1-2 days - consulted Nephrology # . Worsening Ascites with acute on chronic abdominal pain due to Cirrhosis. Present on admission -negative for SBP. She may need pleureX device to facilitate future paracentesis. Patient previously treated with ribavirin and Harvoni followed outpatient by Dr Duncan . HCV reportedly undetectable - ultrasound guided paracentesis 07/02,3.6 L fluid removed - Dilaudid 0.5 mg IV q 4 hours PRN pain - on ceftriaxone for UTI # UTI -Asymptomatic, pyuria in urine -Urine culture > 100,000GNRs - on ceftriaxone # thrombocytosis due to cirrhosis -stable #. Generalized weakness. Present on admission Likely multifactorial with Uremia due to acute renal failure, worsening cirrhosis ,UTI,dehydration - treat underlying cause #. Hypertension. Hypotensive on admission - holding Amlodipine 5 mg daily, Lisinopril 40 mg daily and HCTZ #. Type 2 diabetes mellitus Glyburide will cause hypoglycemia as the patient is NPO for procedure and Metformin held to minimize possibility for lactic acidosis. - holding Glyburide and Metformin - low correction algorithm with Lispro #. Chronic bronchitis related to ongoing tobacco abuse. Clinically without any symptoms of acute exacerbation such as change in sputum or coughing. - DuoNeb (albuterol 2.5 mg plus ipratropium 0.5 mg) by nebulizer as needed. - Symbicort 160/4.5 mcg two inhalations b.i.d. #. Nicotine Dependence. Cessation was discussed and encouraged - Nicotine patch upon request Disposition: Anticipate discharge 2-3 days. Possible large volume paracentesis on Wednesday VTE Mechanical Devices: Intermittant Pneumatic CD Resuscitation Status: CPR: Attempt Resuscitation Ilan Maki MD Jul 04, 2016 13:08
--- NOTE | 2016-07-04 14:20 | NUR ---
Anxiety/Mobility Patient is transferring to [facility] with CGA and use of FWW. Patient feels that she is moving around better. Urinating more than yesterday. Was hoping to be discharged home today, but doctors want to keep patient until wednesday for possible repeat paracentesis. Patient seemed discouraged by this. Tried to help her look at the positive things of continuing to stay, labs continue to improve, mobility is improving and less change of re admitting to hospital.
[2016-07-04] MEDS: cefTRIAXone Inj 1,000 MG in IV Premix 1 EACH IV SCH (16:08)
[2016-07-05] VITALS (10 sets, daily range): BP systolic 121–167; BP diastolic 70–93; PULSE 89–106; RESP 16–18; O2SAT 93–100
[2016-07-05] MEDS: HYDROmorphone 0.5 mg/0.5 mL iSecure Syringe IVPUSH PRN ×5 (01:23→21:55)
[2016-07-05] MEDS: 0.9% Sodium Chloride 1,000 ML IV SCH (03:34)
[2016-07-05 03:43] LABS: INR 1.17 ratio
--- NOTE | 2016-07-05 04:44 | NUR ---
Pain Pt reporting back pain up to 8/10 and per pt IV Dilaudid 0.5mg q4 hrs has kept pain manageable. Pt up to [facility], OPA to void, tolerating activity well. On tele, SR 97.
[2016-07-05] MEDS: Tiotropium 18mcg/Cap 5 Capsule Inhaler Kit INHALATION SCH (07:45)
[2016-07-05] MEDS: Insulin LISPRO 300 Unit/3 mL Inj SUBQ SCH ×4 (07:47→23:09)
[2016-07-05] MEDS: Lactulose 20 Gm/30 mL 30 mL Syrup PO SCH ×3 (09:14→23:00)
--- NOTE | 2016-07-05 11:34 | PCM.PNMED ---
Subjective Date of Service Jul 05, 2016 Subjective The patient is showing some improvement. Taken output in the last 24 hours were 3623 in 1200 out. Her blood pressure was 123/76. She continues to have ascites. This remains non-tense. He denies any chest pain or shortness of breath. Her creatinine continues to improve and today her level was 2.4 mg/dL. Exam Vital Signs Vital Sign - Last Date Time Temp Pulse Resp B/P Pulse Ox O2 Delivery O2 Flow Rate FiO2 07/05/16 08:00 89 07/05/16 05:11 36.8 18 148/84 94 Room Air Intake and Output 07/04/16 07/04/16 07/05/16 Cumulative From/Thru 15:00 23:00 07:00 07/01/16 11:46 - 07/05/16 06:19 Intake Total 1054 ml 1801 ml 1078 ml 9469 ml Output Total 800 ml 400 ml 6310 ml Balance 1054 ml 1001 ml 678 ml 3159 ml Intake Oral 1000 ml 100 ml 4920 ml IV Total 1054 ml 801 ml 978 ml 4549 ml Output Urine Total 800 ml 400 ml 2810 ml Other 3500 ml # Voids 3 # Bowel Movements 0 0 Exam Neck is supple without adenopathy thyromegaly or jugular venous distention. Lungs were clear to auscultation somewhat diminished. Heart was regular rhythmical with a soft systolic murmur. Abdomen was distended with free fluid wave noted. The abdomen is non-tense. Steri-Strips on choice clubbing cyanosis or edema. Lab and Diagnostics Result Diagram: 07/04/16 1048 07/05/16 0250 Assessment & Plan Impression #1 acute kidney injury which appears to be resolving and secondary to intravascular volume depletion number to decompensated cirrhosis with ascites Recommendations #1 I would like to arrange a large volume paracentesis next 1-2 days. In addition we need to stop her IV fluids. VTE Mechanical Devices: Intermittant Pneumatic CD Resuscitation Status: CPR: Attempt Resuscitation Vega Kim DO Jul 05, 2016 11:34
--- NOTE | 2016-07-05 14:05 | PCM.PNMED ---
Subjective Date of Service Jul 05, 2016 Subjective No new complaints. Creatinine continues to improve. Exam Vital Signs Vital Sign - Last Date Time Temp Pulse Resp B/P Pulse Ox O2 Delivery O2 Flow Rate FiO2 07/05/16 08:00 89 07/05/16 05:11 36.8 18 148/84 94 Room Air Intake and Output 07/04/16 07/04/16 07/05/16 Cumulative From/Thru 15:00 23:00 07:00 07/01/16 11:46 - 07/05/16 06:19 Intake Total 1054 ml 1801 ml 1078 ml 9469 ml Output Total 800 ml 400 ml 6310 ml Balance 1054 ml 1001 ml 678 ml 3159 ml Intake Oral 1000 ml 100 ml 4920 ml IV Total 1054 ml 801 ml 978 ml 4549 ml Output Urine Total 800 ml 400 ml 2810 ml Other 3500 ml # Voids 3 # Bowel Movements 0 0 Exam General: Alert, Oriented X3, Cooperative, No acute Distress malnourished skinny woman Eyes: PERRLA, Scleral Anicteric Mouth: Mouth Normal, Mucous Membranes Moist/[place] Neck: Supple, no Thyromegaly, trachea central. Chest & Lungs: Clear to auscultation & percussion, No adventitious breath sounds, no crackles, no wheeze Cardiovascular: Normal S1, Normal S2, No Murmurs/Rubs/Gallops, Regular Rate/ Rhythm, Murmur, Other (No JVD, no peripheral edema) Pulses: Radial (present and equal), Dorsalis Pedi (present and equal) Abdomen: Soft, diffuse tender, + distended, huge ascites. Normoactive bowel tones. Musculoskeletal: Unremarkable. Normal range of motion, no swollen or erythematous joints Extremities: 2 + leg/foot edema, no cyanosis, no clubbing. Skin: No rashes. Warm and dry, no erythematous areas Neurological: Grossly neurologically intact, has generalized weakness, Normal Speech, Sensation Intact Lymphatic: Lymph nodes Cervical and Axillary not palpable. IVs and Medications Medications Reviewed: Medications were reviewed in detail Lab and Diagnostics Result Diagram: 07/04/16 1048 07/05/16 0250 Assessment & Plan Tayla Milan is a 61 year old female with Diabetes mellitus, hypertension, cirrhosis, anxiety, depression, who presents to the emergency department from urgent care complaining of worsening generalized weakness. #. Acute Kidney Injury . Present on admission -Multifactorial : pre renal azotemia from volume loss through diarrhea and diuretics and Hepatorenal syndrome -Baseline creatinine 0.3, initial 3.45 , 2.4 today -Received 75 g albumin 07/02,also on NS at 80ml/h. 25gm albumin 07/03, discontinued IV fluid 07/05/16 -Nephrology recommending large volume paracenteses in 1-2 days. Possibly tomorrow # . Worsening Ascites with acute on chronic abdominal pain due to Cirrhosis. Present on admission -negative for SBP. Patient previously treated with ribavirin and Harvoni followed outpatient by Dr Duncan . HCV reportedly undetectable - ultrasound guided paracentesis 07/02,3.6 L fluid removed - Dilaudid 0.5 mg IV q 4 hours PRN pain - on ceftriaxone for UTI -Ammonia 79, mentation stable, started lactulose # UTI -Asymptomatic, pyuria in urine -Urine culture > 100,000 E coli ,pansensitive - on ceftriaxone, will discontinue tomorrow # thrombocytosis due to cirrhosis -stable #. Generalized weakness. Present on admission Likely multifactorial due to acute renal failure, worsening cirrhosis ,UTI, dehydration - treat underlying cause #. Hypertension. Hypotensive on admission - holding Amlodipine 5 mg daily, Lisinopril 40 mg daily and HCTZ #. Type 2 diabetes mellitus - holding Glyburide and Metformin - low correction algorithm with Lispro #. Chronic bronchitis related to ongoing tobacco abuse. - DuoNeb (albuterol 2.5 mg plus ipratropium 0.5 mg) by nebulizer as needed. - Symbicort 160/4.5 mcg two inhalations b.i.d. #. Nicotine Dependence. Cessation was discussed and encouraged - Nicotine patch upon request Disposition: Anticipate discharge 2-3 days. Possible large volume paracentesis on Wednesday VTE Mechanical Devices: Intermittant Pneumatic CD Resuscitation Status: CPR: Attempt Resuscitation Ilan Maki MD Jul 05, 2016 14:05
--- NOTE | 2016-07-05 14:30 | NUR ---
Activity- Patient forgetful at times. Medicated x 1 for complaint of back pain. Patient ambulated in hallway with walker. Tolerated activity well without increased pain or shortness of breath.
[2016-07-05] MEDS: cefTRIAXone Inj 1,000 MG in IV Premix 1 EACH IV SCH (16:39)
--- NOTE | 2016-07-05 20:06 | NUR ---
2000: Assumed pt care
[2016-07-06] VITALS (8 sets, daily range): BP systolic 112–152; BP diastolic 69–84; PULSE 64–120; RESP 16–21; O2SAT 94–97
--- NOTE | 2016-07-06 04:23 | NUR ---
Meds/Pain Pt refused stool softeners and lactulose, states they don't work. Transitioing to PO pain meds (7.5 mg roxicodone) in anticipation of d/c.
[2016-07-06 06:16] LABS: BASOPHILS % (AUTO) 0.4 % (0-3); EOSINOPHILS % (AUTO) 1.6 % (0-5); MONOCYTES % (AUTO) 13.2 % (4-12); Mean Corpuscular Hemoglobin 28.6 pg (27.0-35.0); Mean Corpuscular Volume 83.6 fL (81-100); Platelet Count 126 bil/L (150-400)
[2016-07-06 06:29] LABS: INR 1.16 ratio
[2016-07-06] MEDS: Insulin LISPRO 300 Unit/3 mL Inj SUBQ SCH ×4 (08:09→23:17)
[2016-07-06] MEDS: Tiotropium 18mcg/Cap 5 Capsule Inhaler Kit INHALATION SCH (08:09)
[2016-07-06] MEDS: Lactulose 20 Gm/30 mL 30 mL Syrup PO SCH ×2 (08:10→19:34)
--- NOTE | 2016-07-06 11:16 | PCM.PNMED ---
Subjective Date of Service Jul 06, 2016 Subjective Overall the patient is unchanged. Her ammonia level is 64 and albumin is 2.4 today. He had 1878 and and 1000 mL severe and out in the last 24 hours. He continues to enlarge and I will go ahead and schedule her for a large volume paracentesis in the morning. Exam Vital Signs Vital Sign - Last Date Time Temp Pulse Resp B/P Pulse Ox O2 Delivery O2 Flow Rate FiO2 07/06/16 10:03 36.6 89 18 127/76 96 Room Air Intake and Output 07/05/16 07/05/16 07/06/16 Cumulative From/Thru 15:00 23:00 07:00 07/01/16 11:46 - 07/06/16 05:39 Intake Total 800 ml 350 ml 16487 ml Output Total 600 ml 700 ml 7610 ml Balance 200 ml -350 ml 3009 ml Intake Oral 800 ml 350 ml 6070 ml IV Total 4549 ml Output Urine Total 600 ml 700 ml 4110 ml Other 3500 ml # Voids 3 # Bowel Movements 0 1 1 Exam Neck is supple without adenopathy thyromegaly but some mild venous distention is noticed at 30. Lungs were clear to auscultation somewhat diminished bilaterally. Her sodium is soft systolic murmur. Abdomen is distended with a fluid wave noted. It is firm but not tense. She is not sure she clubbing cyanosis or edema. Lab and Diagnostics Result Diagram: 07/06/16 0553 07/06/16 0553 Assessment & Plan Impression #1. Acute kidney injury secondary to volume depletion which is resolving number to decompensated cirrhosis Recommendations #1 or go ahead make arrangements for a large volume paracentesis in the morning. VTE Mechanical Devices: Intermittant Pneumatic CD Resuscitation Status: CPR: Attempt Resuscitation Vega Kim DO Jul 06, 2016 11:16
--- NOTE | 2016-07-06 12:40 | PCM.PNMED ---
Subjective Date of Service Jul 06, 2016 Subjective No new complaints. Creatinine continues to improve. Awaiting large volume paracentesis Exam Vital Signs Vital Sign - Last Date Time Temp Pulse Resp B/P Pulse Ox O2 Delivery O2 Flow Rate FiO2 07/06/16 10:03 36.6 89 18 127/76 96 Room Air Intake and Output 07/05/16 07/05/16 07/06/16 Cumulative From/Thru 15:00 23:00 07:00 07/01/16 11:46 - 07/06/16 05:39 Intake Total 800 ml 350 ml 50470 ml Output Total 600 ml 700 ml 7610 ml Balance 200 ml -350 ml 3009 ml Intake Oral 800 ml 350 ml 6070 ml IV Total 4549 ml Output Urine Total 600 ml 700 ml 4110 ml Other 3500 ml # Voids 3 # Bowel Movements 0 1 1 Exam General: Alert, Oriented X3, Cooperative, No acute Distress malnourished skinny woman Eyes: PERRLA, Scleral Anicteric Mouth: Mouth Normal, Mucous Membranes Moist/[place] Neck: Supple, Chest & Lungs: Clear to auscultation & percussion, N Cardiovascular: Normal S1, Normal S2, No Murmurs/Rubs/Gallops, Pulses: Radial (present and equal), Dorsalis Pedi (present and equal) Abdomen: Soft, diffuse tender, + distended, huge ascites. Normoactive bowel tones. Musculoskeletal: Unremarkable. Normal range of motion, no swollen or erythematous joints Extremities: 2 + leg/foot edema, no cyanosis, no clubbing. Skin: No rashes. Warm and dry, no erythematous areas Neurological: Grossly neurologically intact, has generalized weakness, Normal Speech, Sensation Intact Lymphatic: Lymph nodes Cervical and Axillary not palpable. IVs and Medications Medications Reviewed: Medications were reviewed in detail Lab and Diagnostics Result Diagram: 07/06/16 0553 07/06/16 0553 X-Rays, CTs and MRIs PROCEDURE: US GUIDED PARACENTESIS, PRIMARY ([id number]) INDICATIONS: increasing abd distension TECHNIQUE: The indications, alternatives, benefits, risks, and complications of the procedure were explained to the patient. Written informed consent was obtained and placed in the chart. The abdomen and pelvis were examined sonographically, and an appropriate site was chosen for paracentesis. The skin was prepared and draped in the usual sterile fashion, and 1% lidocaine was infiltrated from the skin down through the peritoneal surface. A 19-gauge catheter-covered needle was then introduced into the peritoneal space, the catheter was advanced and the needle was withdrawn, and thereafter peritoneal fluid was withdrawn. The catheter was then removed and a dressing was applied. The fluid was discarded if the clinician did not order diagnostic testing of the fluid. The attending physician was present, and personally performed the procedure. COMPARISON: [facility], US, US GUIDED PARACENTESIS, 05/27/2016, 12: 50. FINDINGS: Access site: Midline pelvis Needle: One-Step centesis catheter with introducer needle. Fluid volume and description: 3.6 L of clear peritoneal fluid. Fluid sent for diagnostic testing: Fluid sent for cytology, multiple chemistry panels and therapeutic drainage. Medications: 1% lidocaine for local anaesthesia. Complications: None. IMPRESSION: Successful ultrasound-guided paracentesis. Dictated by: Gunner GARCIA Interpreted: Samantha Dominguez MD on 07/03/2016 at 9:13 Assessment & Plan Tayla Milan is a 61 year old female with Diabetes mellitus, hypertension, cirrhosis, anxiety, depression, who presents to the emergency department from urgent care complaining of worsening generalized weakness. #. Acute Kidney Injury . Present on admission -Multifactorial : pre renal azotemia from volume loss through diarrhea and diuretics and Hepatorenal syndrome -Baseline creatinine 0.3, initial 3.45 ,1.86 today -Received 75 g albumin 07/02,also treated with NS at 80ml/h. 25gm albumin 07/03 , discontinued IV fluid 07/05/16 -Nephrology recommending large volume paracenteses in 1-2 days. Possibly tomorrow # . Worsening Ascites with acute on chronic abdominal pain due to Cirrhosis. Present on admission -negative for SBP. Patient previously treated with ribavirin and Harvoni followed outpatient by Dr Duncan . HCV reportedly undetectable - ultrasound guided paracentesis 07/02,3.6 L fluid removed - Dilaudid 0.5 mg IV q 4 hours PRN pain - on ceftriaxone for UTI -Ammonia 79, mentation stable, started lactulose # UTI -Asymptomatic, pyuria in urine -Urine culture > 100,000 E coli ,pansensitive - on ceftriaxone, will discontinue tomorrow # thrombocytosis due to cirrhosis -stable #. Generalized weakness. Present on admission Likely multifactorial due to acute renal failure, worsening cirrhosis ,UTI, dehydration - treat underlying cause #. Hypertension. Hypotensive on admission - holding Amlodipine 5 mg daily, Lisinopril 40 mg daily and HCTZ #. Type 2 diabetes mellitus - holding Glyburide and Metformin - low correction algorithm with Lispro #. Chronic bronchitis related to ongoing tobacco abuse. - DuoNeb (albuterol 2.5 mg plus ipratropium 0.5 mg) by nebulizer as needed. - Symbicort 160/4.5 mcg two inhalations b.i.d. #. Nicotine Dependence. Cessation was discussed and encouraged - Nicotine patch upon request Disposition: Anticipate discharge 1-2 days. Possible large volume paracentesis on tomorrow. No IR available for elective procedures today. VTE Mechanical Devices: Intermittant Pneumatic CD Resuscitation Status: CPR: Attempt Resuscitation Ilan Maki MD Jul 06, 2016 12:40
[2016-07-06] MEDS ORDERED: 0.9% Sodium Chloride 250 ML ONE (15:40)
[2016-07-06] MEDS: cefTRIAXone Inj 1,000 MG in IV Premix 1 EACH IV SCH (15:43)
--- NOTE | 2016-07-06 18:54 | NUR ---
MENTATION/ACTIVITY Patient is alert and oriented to person, place and time. Forgetful/Confused at times but can be redirected easily. Oxicodone PO has been effective for pain control. Tolerating liquids PO and her diet well. Denies nausea. No emesis noted. Denies SOB. She got up with 1 PA to the chair. She has been using her call light appropriately.
[2016-07-07] VITALS (21 sets, daily range): BP systolic 87–141; BP diastolic 59–80; PULSE 89–118; RESP 16–24; O2SAT 95–100
--- NOTE | 2016-07-07 05:53 | NUR ---
Pain/activity Pt reporting back pain 02/11, administered 7.5mg Oxycodone which pt reports to "take the edge off." Pt has been restless and reports that her belly is getting bigger and making it more uncomfortable in bed. Pt requested to sit up in chair this morning, Demian alarm placed. Pt on tele, ST 100s-110s with activity. Lactulose given at bedtime, still no BM this shift.
[2016-07-07] MEDS: Lactulose 20 Gm/30 mL 30 mL Syrup PO SCH ×2 (07:45→20:57)
[2016-07-07] MEDS: Insulin LISPRO 300 Unit/3 mL Inj SUBQ SCH ×4 (07:46→20:59)
[2016-07-07] MEDS: Tiotropium 18mcg/Cap 5 Capsule Inhaler Kit INHALATION SCH (08:30)
--- NOTE | 2016-07-07 09:30 | NUR ---
PARACENTESIS US is at the bedside at this time. Paracentesis to follow. Addendum: 07/07/16 at 1143 by ANDRE REMY RN PARACENTESIS Per ANYA Klein-7,400 ml of fluid has been obtained at this time. SBP-80's. Patient denies pain/nausea/SOB. Tolerating procedure well. Dr. Mkai made aware. Per Paracentesis should be discontinued at this time. Albumin to be infused. Paracentesis d/cd and pharmacy was notified RE: Albumin infusion. Will continue to monitor.
--- NOTE | 2016-07-07 10:17 | PCM.PNMED ---
Subjective Date of Service Jul 07, 2016 Subjective NEPHROLOGY PROGRESS NOTE The patient feels fine today but is anxious to have her paracentesis today. She feels her abdomen is distended and full. She has no other complaints. ROS is negative otherwise. Exam Vital Signs Vital Sign - Last Date Time Temp Pulse Resp B/P Pulse Ox O2 Delivery O2 Flow Rate FiO2 07/07/16 08:49 102 16 97 Room Air 07/07/16 04:09 36.5 106/71 Intake and Output 07/06/16 07/06/16 07/07/16 Cumulative From/Thru 15:00 23:00 07:00 07/01/16 11:46 - 07/07/16 06:17 Intake Total 1160 ml 200 ml 23125 ml Output Total 400 ml 220 ml 8230 ml Balance 760 ml -20 ml 3749 ml Intake Oral 1160 ml 200 ml 7430 ml IV Total 4549 ml Output Urine Total 400 ml 220 ml 4730 ml Other 3500 ml # Voids 3 # Bowel Movements 1 0 2 Exam General: Alert, Oriented X3, Cooperative, Mild Distress Head: Normal Eyes: PERRLA, EOMI Mouth: Mucous Membranes moist Chest & Lungs: Clear to auscultation & percussion Cardiovascular: Normal S1, Normal S2, RRR Abdomen: Tender (mild, diffuse), Distended, Normoactive bowel tones, Tympanitic , Soft Genitourinary: Inman Absent Extremities: no edema Neurological: Grossly Neurologically Intact, Cranial Nerves 2-12 Intact IVs and Medications Medications Reviewed: Medications were reviewed in detail Lab and Diagnostics Result Diagram: 07/06/16 0553 07/07/16 0508 X-Rays, CTs and MRIs PROCEDURE: US GUIDED PARACENTESIS, PRIMARY ([id number]) INDICATIONS: increasing abd distension TECHNIQUE: The indications, alternatives, benefits, risks, and complications of the procedure were explained to the patient. Written informed consent was obtained and placed in the chart. The abdomen and pelvis were examined sonographically, and an appropriate site was chosen for paracentesis. The skin was prepared and draped in the usual sterile fashion, and 1% lidocaine was infiltrated from the skin down through the peritoneal surface. A 19-gauge catheter-covered needle was then introduced into the peritoneal space, the catheter was advanced and the needle was withdrawn, and thereafter peritoneal fluid was withdrawn. The catheter was then removed and a dressing was applied. The fluid was discarded if the clinician did not order diagnostic testing of the fluid. The attending physician was present, and personally performed the procedure. COMPARISON: [facility], , US GUIDED PARACENTESIS, 05/27/2016, 12: 50. FINDINGS: Access site: Midline pelvis Needle: One-Step centesis catheter with introducer needle. Fluid volume and description: 3.6 L of clear peritoneal fluid. Fluid sent for diagnostic testing: Fluid sent for cytology, multiple chemistry panels and therapeutic drainage. Medications: 1% lidocaine for local anaesthesia. Complications: None. IMPRESSION: Successful ultrasound-guided paracentesis. Dictated by: Gunner GARCIA Interpreted: Samantha Dominguez MD on 07/03/2016 at 9:13 Assessment & Plan This is a 61 year old woman with past medical history significant for DM2, hypertension, cirrhosis 2/2 chronic hepatitis C post treatment, and 3 month history of health decline after her hip surgery 3 month ago who presented to the [facility] ED due to weakness and worsening ascites. Acute kidney injury, multifactorial, improving -Baseline Cr normal -Etiology likely due to prerenal azotemia from significant diuresis, patient was very dry on exam -Given her high urine sodium, improvement with IVF unlikely to be hepatorenal syndrome -Paracentesis scheduled today Decompensated Cirrhosis -would restart Lasix tomorrow -would restart spironolactone 50 mg in AM 25 mg in PM tomorrow Hypovolemic hyponatremia, resolved We will continue to follow along with you. VTE Mechanical Devices: Intermittant Pneumatic CD Resuscitation Status: CPR: Attempt Resuscitation Attending Statement Patient was seen with the internal medicine resident the case was thoroughly discussed. I await the paracentesis today and agree with restarting her spironolactone. Michelle Graves DO Jul 07, 2016 10:17 Vega Kim DO Jul 07, 2016 10:27
--- NOTE | 2016-07-07 10:22 | DRSVH ---
PROCEDURE: X-RAY CHEST ONE VIEW, PORTABLE ([id number]) INDICATIONS: tachycardia TECHNIQUE: One view of the chest was acquired. COMPARISON: [facility], , CHEST 1VW (PORTABLE), 05/17/2014, 16:42. FINDINGS: Surgical changes and devices: Low anterior cervical fusion. Lungs and pleura: No pleural effusions or pneumothorax. Lung volumes are low. Right basilar atelecta sis versus pneumonia. Mediastinum: Mediastinal contours appear normal. Heart size is normal. Bones and chest wall: No suspicious bony lesions. Overlying soft tissues appear unremarkable. IMPRESSION: Right basilar atelectasis versus pneumonia. Dictated by: Sarah Black M.D. on 07/07/2016 at 10:21 Approved by: Sarah Black M.D. on 07/07/2016 at 10:21
[2016-07-07] MEDS ORDERED: Albumin 25% 50 ML IV ONE (10:35)
[2016-07-07] MEDS ORDERED: Albumin 25% 12.5 Gm 50 mL IV ONE (11:50)
--- NOTE | 2016-07-07 12:20 | DRSVH ---
PROCEDURE: US GUIDED PARACENTESIS, PRIMARY ([id number]) INDICATIONS: cirrhosis TECHNIQUE: The indications, alternatives, benefits, risks, and complications of the procedure were explained to the patient. Written informed consent was obtained and placed in the chart. The abdomen and pelvis were examined sonographically, and an appropriate site was chosen for paracentesis. The skin was pre pared and draped in the usual sterile fashion, and 1% lidocaine was infiltrated from the skin down th rough the peritoneal surface. A 19-gauge catheter-covered needle was then introduced into the perito sharla space, the catheter was advanced and the needle was withdrawn, and thereafter peritoneal fluid w as withdrawn. The catheter was then removed and a dressing was applied. The fluid was discarded if the clinician did not order diagnostic testing of the fluid. COMPARISON: [facility], US, US GUIDED PARACENTESIS, 07/02/2016, 8:41. [facility], US, US GUIDED PARACENTESIS, 05/27/2016, 12:50. FINDINGS: Access site: Low anterior Needle: One-Step centesis catheter with introducer needle. Fluid volume and description: 7450 cc of clear red tinged fluid Fluid sent for diagnostic testing: No Medications: 1% lidocaine for local anaesthesia. Complications: None. IMPRESSION: Successful ultrasound-guided paracentesis. Dictated by: Sarah Black M.D. on 07/07/2016 at 12:18 Approved by: Sarah Black M.D. on 07/07/2016 at 12:18
--- NOTE | 2016-07-07 12:20 | NUR ---
Paracentesis 7,450 mLs out: Systolic blood pressure dropped from low 100's to [address] Black and Dr. Maki notified. Paracentesis immediately stopped due to blood pressure. Patient denied any dizziness or pain. Blood pressure improved at the end of procedure. Catheter removed intact. Pressure held to site x 20 minutes. No bleeding or hematoma. Patient had a total of 7,450 mLs of dark janae, serous-sanguinous fluid out. Report to primary RN, Marvin. Patient to receive ordered IV Albumin.
[2016-07-07] MEDS ORDERED: Albumin 25% 25 GM in IV Premix 1 EACH IV ONE (13:05)
[2016-07-07] MEDS ORDERED: 0.9% Sodium Chloride 1,000 ML ONE (13:49)
--- NOTE | 2016-07-07 15:12 | PATH ---
SURGICAL PATHOLOGY Attending Physician:See Additional MD CASE STATUS: Signed Out PATIENT NAME: GIFTY ASHFORD PID: [id number] : 1955 DATE COLLECTED:07/02/2016 00:00 SPECIMEN: Peritoneal Fluid CLINICAL HISTORY: Peritoneal Fluid IDC-10 code not given FINAL DIAGNOSIS: PERITONEAL FLUID CYTOLOGY: NO CYTOLOGIC EVIDENCE OF MALIGNANCY. MESOTHELIAL CELLS, LYMPHOCYTES, AND HISTIOCYTES IDENTIFIED. ICD10 CODE R18.8 GROSS DESCRIPTION: Received fresh on 07/03/2016 is approximately 55 cc of clear yellow fluid. Prepared are one cell block, one ThinPrep and one Cytospin slides. Vo MICRO DESCRIPTION: One ThinPrep slide, one Cytospin slide, and one H&E cell block slide are examined. These show mesothelial cells, lymphocytes, and histiocyes. No atypical or malignant cells identified. ICD-9 CODES: CPT CODES: 1: 45476, 80270 Electronically Signed Out Anuja Burt MD [facility] Pathology [facility] [address], [place] [address] Technical component performed at [facility], [address], [place], [address]
--- NOTE | 2016-07-07 15:18 | NUR ---
NUTRITION FOLLOW-UP: ASSESS: 61YO F admit with DEYSI, ascites, nephrology following. Pt had paracentesis today with 7.45L removed. Mentation seems to be improving. Pt is on a heart healthy/consistent carb with PO ~50-75% of most meals. PMHX: Cirrhosis, DM, CVA, HTN,Arthritis,COPD DIET: Heart Healthy, Diabetic. PO bites x 1 meal LABS: Reviewed. Bun 43, Template Inspector 1.56, Glu 237, AST 85, ALT 36, Alb 2.9 MEDS: Reviewed GI: BMx2 1/2 WEIGHT: 73kg BMI: 29.3kg, admit wt 77.2kg EST.NEEDS: DEYSI, COPD Kcals: 3739-5720 kcal/day (30-35kcal/kg) Pro: 60-75g/day (.8-1.0g/kg) NUTRITION DIAGNOSIS: (1) Increased energy needs related to increased demand for nutrients as evidenced by Cirrhosis/COPD.--PERSISTS (2) Altered nutrition related laboratory values related to acute kidney injury as evidenced by elevated BUN/creatinine.--IMPROVING INTERVENTION: (1) Will add Glucerna on L tray to help supplement increased kcal/pro needs. MONITOR/EVALUATE:PO intake, wt, lab values, diet modification, POC, nutrition status. Will continue to monitor per moderate nutrition risk guidelines
[2016-07-07] MEDS: cefTRIAXone Inj 1,000 MG in IV Premix 1 EACH IV SCH (16:59)
--- NOTE | 2016-07-07 17:07 | PCM.PNMED ---
Subjective Date of Service Jul 07, 2016 Subjective Had large volume paracentesis today.7450 cc of clear red tinged fluid removed. Patient feeling much better. Discussed with daughter and sister at the bedside. The plan to take her to daughter place in [place] upon discharge. Daughter can drive her up here. they plan to get a new PCP and drum filler for her cirrhosis around [place]. Exam Vital Signs Vital Sign - Last Date Time Temp Pulse Resp B/P Pulse Ox O2 Delivery O2 Flow Rate FiO2 07/07/16 14:00 36.1 94 17 113/73 96 Room Air Intake and Output 07/06/16 07/06/16 07/07/16 Cumulative From/Thru 15:00 23:00 07:00 07/01/16 11:46 - 07/07/16 06:17 Intake Total 1160 ml 200 ml 79099 ml Output Total 400 ml 220 ml 8230 ml Balance 760 ml -20 ml 3749 ml Intake Oral 1160 ml 200 ml 7430 ml IV Total 4549 ml Output Urine Total 400 ml 220 ml 4730 ml Other 3500 ml # Voids 3 # Bowel Movements 1 0 2 Exam General: Alert, Oriented X3, Cooperative, No acute Distress malnourished skinny woman Eyes: PERRLA, Scleral Anicteric Mouth: Mouth Normal, Mucous Membranes Moist/[place] Neck: Supple, Chest & Lungs: Clear to auscultation & percussion, N Cardiovascular: Normal S1, Normal S2, No Murmurs/Rubs/Gallops, Pulses: Radial (present and equal), Dorsalis Pedi (present and equal) Abdomen: Soft, diffuse tender, + distended, ascites. Markedly improved. Normoactive bowel tones. Musculoskeletal: Unremarkable. Normal range of motion, no swollen or erythematous joints Extremities: 2 + leg/foot edema, no cyanosis, no clubbing. Skin: No rashes. Warm and dry, no erythematous areas Neurological: Grossly neurologically intact, has generalized weakness, Normal Speech, Sensation Intact Lymphatic: Lymph nodes Cervical and Axillary not palpable. IVs and Medications Medications Reviewed: Medications were reviewed in detail Lab and Diagnostics Result Diagram: 07/06/16 0553 07/07/16 3424 X-Rays, CTs and MRIs PROCEDURE: US GUIDED PARACENTESIS, PRIMARY ([id number]) INDICATIONS: increasing abd distension TECHNIQUE: The indications, alternatives, benefits, risks, and complications of the procedure were explained to the patient. Written informed consent was obtained and placed in the chart. The abdomen and pelvis were examined sonographically, and an appropriate site was chosen for paracentesis. The skin was prepared and draped in the usual sterile fashion, and 1% lidocaine was infiltrated from the skin down through the peritoneal surface. A 19-gauge catheter-covered needle was then introduced into the peritoneal space, the catheter was advanced and the needle was withdrawn, and thereafter peritoneal fluid was withdrawn. The catheter was then removed and a dressing was applied. The fluid was discarded if the clinician did not order diagnostic testing of the fluid. The attending physician was present, and personally performed the procedure. COMPARISON: [facility], , US GUIDED PARACENTESIS, 05/27/2016, 12: 50. FINDINGS: Access site: Midline pelvis Needle: One-Step centesis catheter with introducer needle. Fluid volume and description: 3.6 L of clear peritoneal fluid. Fluid sent for diagnostic testing: Fluid sent for cytology, multiple chemistry panels and therapeutic drainage. Medications: 1% lidocaine for local anaesthesia. Complications: None. IMPRESSION: Successful ultrasound-guided paracentesis. Dictated by: Gunner Vicente [facility] Interpreted: Samantha Dominguez MD on 07/03/2016 at 9:13 Assessment & Plan Tayla Milan is a 61 year old female with Diabetes mellitus, hypertension, cirrhosis, anxiety, depression, who presents to the emergency department from urgent care complaining of worsening generalized weakness. #. Acute Kidney Injury . Present on admission -Multifactorial : pre renal azotemia from volume loss through diarrhea and diuretics and Hepatorenal syndrome -Baseline creatinine 0.3, initial 3.45 ,1.86 today -Received 75 g albumin 07/02,also treated with NS at 80ml/h. 25gm albumin 07/03 , discontinued IV fluid 07/05/16 -Nephrology recommending large volume paracenteses in 1-2 days. Possibly tomorrow # . Worsening Ascites with acute on chronic abdominal pain due to Cirrhosis. Present on admission -negative for SBP. Patient previously treated with ribavirin and Harvoni followed outpatient by Dr Duncan . HCV reportedly undetectable. Discussed with daughter and sister at the bedside. They plan to take her to [facility] in [place] upon discharge. Daughter can't drive her up here. they plan to get a new PCP and drum filler for her cirrhosis around [place]. Spoke with Dr Augustin today. He recommends we do Doppler ultrasound to rule out liver mass and see her portal HTN status .he will fax her outpatient records to a new GI when they get one . - ultrasound guided paracentesis 07/02,3.6 L fluid removed,7.4 L removed today - Dilaudid 0.5 mg IV q 4 hours PRN pain - on ceftriaxone for UTI -Ammonia 79, mentation stable, started lactulose -Nephrology planning to restart Lasix and spironolactone 50 mg in AM 25 mg in PM tomorrow # UTI -Asymptomatic, pyuria in urine -Urine culture > 100,000 E coli ,pansensitive - on ceftriaxone, will discontinue tomorrow # thrombocytosis due to cirrhosis -stable #. Generalized weakness. Present on admission Likely multifactorial due to acute renal failure, worsening cirrhosis ,UTI, dehydration - treat underlying cause #. Hypertension. Hypotensive on admission - holding Amlodipine 5 mg daily, Lisinopril 40 mg daily and HCTZ #. Type 2 diabetes mellitus - holding Glyburide and Metformin due to cirrhosis and DEYSI - low correction algorithm with Lispro. Glucose uncontrolled. will start Lantus 10 units daily. May resume home metformin and glyburide when DEYSI improves #. Chronic bronchitis related to ongoing tobacco abuse. - DuoNeb (albuterol 2.5 mg plus ipratropium 0.5 mg) by nebulizer as needed. - Symbicort 160/4.5 mcg two inhalations b.i.d. #. Nicotine Dependence. Cessation was discussed and encouraged - Nicotine patch upon request Disposition: Patient can be discharge tomorrow if creatinine continues to improve and once she gets US . Nephrology planning to resume her diuretics tomorrow. She may stay 1 more day if they recommend following her kidney function tests on diuretics VTE Mechanical Devices: Intermittant Pneumatic CD Resuscitation Status: CPR: Attempt Resuscitation Ilan Maki MD Jul 07, 2016 17:07
--- NOTE | 2016-07-07 19:00 | NUR ---
POST PARACENTESIS Oxicodone 7.5 mg PO has been helpful for pain control. Tolerating liquids PO and her diet. Denies nausea. No emesis noted. Patient was tired after her paracentesis and has not gotten OOB. PT to evaluate her in the morning. Bandaid dressing over her puncture site is intact. No bleeding noted. Per US patient needs to be NPO after MN and US to be done in the morning. She continues to be on tele. Per telegraph service clerk patient is on sinus rhythm; HR-90's.
[2016-07-07] MEDS: Insulin GLARgine 100 Unit/mL Syringe SUBQ SCH (20:57)
[2016-07-08] VITALS (9 sets, daily range): BP systolic 104–149; BP diastolic 63–79; PULSE 85–110; RESP 16–18; O2SAT 92–99
--- NOTE | 2016-07-08 03:34 | NUR ---
Pain/activity Pt given Oxycodone 7.5mg for back pain 02/11, on reassessment feldt pain score 0. Pt has been able to sleep throughout most of shift and appears comfortable. Pt on [place] Midstream, SR 90s. Pt started Lantus 10 units tonight. BG at bedtime was 158 and recheck at 031 BG was 166. Continue to monitor. Addendum: 07/08/16 at 0603 by JALIL BULLOCK RN Pt made NPO at midnight. Addendum: 07/08/16 at 0632 by JALIL BULLOCK RN BM Pt had small BM that had to be digitally disimpacted.
[2016-07-08] MEDS: Insulin LISPRO 300 Unit/3 mL Inj SUBQ SCH ×4 (08:00→22:00)
[2016-07-08] MEDS: Insulin GLARgine 100 Unit/mL Syringe SUBQ SCH (08:15)
[2016-07-08] MEDS: Lactulose 20 Gm/30 mL 30 mL Syrup PO SCH ×2 (08:23→21:10)
[2016-07-08] MEDS: Tiotropium 18mcg/Cap 5 Capsule Inhaler Kit INHALATION SCH (08:30)
--- NOTE | 2016-07-08 11:31 | DRSVH ---
PROCEDURE: US ABDOMEN DOPPLER, LIMITED INDICATIONS: 61 year-old female with cirrhosis. Assess for liver masses. TECHNIQUE: Real-time scanning was performed of the abdominal and retroperitoneal organs, with image documentatio n. Color and pulse Doppler interrogation was also performed of the hepatic and splenic vessels, or o f the lesion of interest. COMPARISON: [facility], CT, CT ABD PELVIS W CON, 03/16/2016, 10:29. [facility], MR, MR ABD W&WO CON, 07/16/2015, 7:18. [facility], US, US ABDOMEN, 05/21/2016, 9:43. FINDINGS: Liver: Liver is small in overall size and heterogeneous in echotexture with nodular capsule, indicat ing cirrhosis. 9 x 9 x 5 mm hyperechoic lesion is now apparent in the left hepatic lobe. Doppler: Main portal vein is patent, with luminal diameter of 15 mm (normal of 13-16 mm). On pulse Doppler interrogation, portal vein flow direction is hepatopetal. Hepatic artery Doppler waveforms d emonstrate normal systolic upstrokes. Hepatic veins are all patent, with expected triphasic Doppler waveforms. Splenic vein appears patent. Miscellaneous: There is moderate perihepatic ascites. IMPRESSION: 1. 9 x 9 x 5 mm hyperechoic lesion is now apparent in the left hepatic lobe, possibly a small hepatoc ellular carcinoma in the setting of known cirrhosis. 2. Moderate residual perihepatic ascites, status post recent paracentesis. Dictated by: Michael Philip M.D. on 07/08/2016 at 11:29 Approved by: Michael Philip M.D. on 07/08/2016 at 11:29
--- NOTE | 2016-07-08 14:06 | NUR ---
Social Work Continued Discharge Planning/Readiness for Discharge D: EMR Reviewed. Pt is on day 7 of hospitalization for ESLD, Ascities, Weakness. Pt is not medically stable at this time. [facility] referral has been faxed, confirmation received. Pt currently in transition with housing and will be discharging to her daughters home in [place] ([place] [phone]). PT=SNF. SW met with Pt and Pt's son to discuss recommendation. Pt declining, additionally Pt does not have SNF benefit and cannot pay privately. Pt has previously been open with [facility] and would like to initiate services with them at discharge. SW contacted [facility] to initiate referral. SW faxed clinicals and signed F2F, confirmation received. SW indicated Pt will likely discharge tomorrow. TERRANCE anticipates Pt to discharge to dtr's home tomorrow via POV with [facility] RN/PT/TALENT ENGINEER/LEASE PURCHASE DRIVER to open within 48 hours. Pt's family to provide transportation. If additional needs arise, SW to address. A: Pt with good family support, will benefit from HH P: TERRANCE anticipates Pt to discharge to dtr's home tomorrow via POV with [facility] RN/PT/TALENT ENGINEER/LEASE PURCHASE DRIVER to open within 48 hours. Pt's family to provide transportation. If additional needs arise, SW to address. PEDRO LUIS Munroe
--- NOTE | 2016-07-08 15:47 | NUR ---
ACTIVITY/PAIN Patient has been up in chair OOB x2 today. Transferred with 1 person CGA. Tolerating well. Also worked with PT. C/o chronic lower back pain 02/11, medicated with oxy 7.5mg x1 with good relief. Patient is anxious about discharging home. Continue to monitor.
--- NOTE | 2016-07-08 15:54 | PCM.PNMED ---
Subjective Date of Service Jul 08, 2016 Subjective says overall feels better after paracentesis on 07/07 Exam Vital Signs Vital Sign - Last Date Time Temp Pulse Resp B/P Pulse Ox O2 Delivery O2 Flow Rate FiO2 07/08/16 10:50 37.4 98 16 113/63 94 Room Air Intake and Output 07/07/16 07/07/16 07/08/16 Cumulative From/Thru 15:00 23:00 07:00 07/01/16 11:46 - 07/08/16 06:55 Intake Total 442 ml 350 ml 70560 ml Output Total 7450 ml 379 ml 70574 ml Balance -7450 ml 442 ml -29 ml -3288 ml Intake Oral 220 ml 350 ml 8000 ml IV Total 222 ml 4771 ml Output Urine Total 379 ml 5109 ml Other 7450 ml 61982 ml # Voids 1 1 5 # Bowel Movements 0 1 3 General: Alert, Cooperative, No Acute Distress Eyes: Scleral Anicteric Mouth: Mucous Membr Moist/[place] Neck: Supple Chest & Lungs: Chest Wall Normal, Clear to auscultation & percussion Cardiovascular: Regular Rate/Rhythm Abdomen: Non-tender, Distended, Normoactive bowel tones, Soft Extremities: Other (1+ LE bilat) Neurological: Grossly Neurologically Intact, Normal Speech IVs and Medications Medications Reviewed: Medications were reviewed in detail Lab and Diagnostics Result Diagram: 07/06/16 0553 07/08/16 0817 X-Rays, CTs and MRIs PROCEDURE: US GUIDED PARACENTESIS, PRIMARY ([id number]) INDICATIONS: increasing abd distension TECHNIQUE: The indications, alternatives, benefits, risks, and complications of the procedure were explained to the patient. Written informed consent was obtained and placed in the chart. The abdomen and pelvis were examined sonographically, and an appropriate site was chosen for paracentesis. The skin was prepared and draped in the usual sterile fashion, and 1% lidocaine was infiltrated from the skin down through the peritoneal surface. A 19-gauge catheter-covered needle was then introduced into the peritoneal space, the catheter was advanced and the needle was withdrawn, and thereafter peritoneal fluid was withdrawn. The catheter was then removed and a dressing was applied. The fluid was discarded if the clinician did not order diagnostic testing of the fluid. The attending physician was present, and personally performed the procedure. COMPARISON: [facility], [place], US GUIDED PARACENTESIS, 05/27/2016, 12: 50. FINDINGS: Access site: Midline pelvis Needle: One-Step centesis catheter with introducer needle. Fluid volume and description: 3.6 L of clear peritoneal fluid. Fluid sent for diagnostic testing: Fluid sent for cytology, multiple chemistry panels and therapeutic drainage. Medications: 1% lidocaine for local anaesthesia. Complications: None. IMPRESSION: Successful ultrasound-guided paracentesis. Dictated by: Gunner GARCIA Interpreted: Samantha Dominguez MD on 07/03/2016 at 9:13 Assessment & Plan 61 year old female with Diabetes mellitus, hypertension, cirrhosis, anxiety, depression, who presents to the emergency department from urgent care complaining of worsening generalized weakness. #. Acute Kidney Injury . Present on admission. ongoing but improving -Multifactorial : pre renal azotemia from volume loss through diarrhea and diuretics and Hepatorenal syndrome -Baseline creatinine 0.3, initial 3.45 -Received 75 g albumin 07/02,also treated with NS at 80ml/h. 25gm albumin 07/03 , discontinued IV fluid 07/05/16 - appreciate nephrology consult. will f/u w/ recs - Spironolactone per nephrologyr ecs # . Worsening Ascites with acute on chronic abdominal pain due to Cirrhosis ( presumably from history EtOH and Hep C). Present on admission - s/p ultrasound-guided paracentesis on 07/07/16 - Previously treated with ribavirin and Harvoni followed outpatient by Dr Duncan . HCV reportedly undetectable. - per prior notes family plans to take her to daughter's place in [place] upon discharge. They plan to get a new PCP and client hr manager for her cirrhosis around [place]. - f/u repeat abdominal U/S today # Acute UTI, poa -Asymptomatic, pyuria in urine -Urine culture > 100,000 E coli ,pansensitive - on ceftriaxone x 7 days - stop Abx on 07/08/16 # thrombocytosis due to cirrhosis - stable #. Generalized weakness. Present on admission Likely multifactorial due to acute renal failure, worsening cirrhosis ,UTI, dehydration - treat underlying cause #. Hypertension. Hypotensive on admission - holding Amlodipine 5 mg daily, Lisinopril 40 mg daily and HCTZ #. Type 2 diabetes mellitus - holding Glyburide and Metformin due to cirrhosis and DEYSI - low correction algorithm with Lispro. Glucose uncontrolled. - Lantus 10 units daily. - May resume home metformin and glyburide when DEYSI improves #. Chronic bronchitis related to ongoing tobacco abuse. - DuoNeb (albuterol 2.5 mg plus ipratropium 0.5 mg) by nebulizer as needed. - Symbicort 160/4.5 mcg two inhalations b.i.d. #. Nicotine Dependence. Cessation was discussed and encouraged - Nicotine patch upon request Disposition: Likely home with HH tomorrow if OK by nephrology consult as well. VTE Mechanical Devices: Intermittant Pneumatic CD Resuscitation Status: CPR: Attempt Resuscitation Time spent 30 min Ezra Parmar Jul 08, 2016 15:54
--- NOTE | 2016-07-08 15:57 | PCM.PNMED ---
Subjective Date of Service Jul 08, 2016 Subjective NEPHROLOGY PROGRESS NOTE The patient states she would like to be discharged home today. She had her paracentesis yesterday with 7.5 L of fluid out. ROS is negative otherwise. Exam Vital Signs Vital Sign - Last Date Time Temp Pulse Resp B/P Pulse Ox O2 Delivery O2 Flow Rate FiO2 07/08/16 10:10 100 07/08/16 04:20 36.6 16 132/65 93 Room Air Intake and Output 07/07/16 07/07/16 07/08/16 Cumulative From/Thru 15:00 23:00 07:00 07/01/16 11:46 - 07/08/16 06:55 Intake Total 442 ml 350 ml 42140 ml Output Total 7450 ml 379 ml 71976 ml Balance -7450 ml 442 ml -29 ml -3288 ml Intake Oral 220 ml 350 ml 8000 ml IV Total 222 ml 4771 ml Output Urine Total 379 ml 5109 ml Other 7450 ml 16295 ml # Voids 1 1 5 # Bowel Movements 0 1 3 Exam General: Alert, Oriented X3, Cooperative, Mild Distress Head: Normal Eyes: PERRLA, EOMI Mouth: Mucous Membranes moist Chest & Lungs: Clear to auscultation & percussion Cardiovascular: Normal S1, Normal S2, RRR Abdomen: Tender (mild, diffuse), Distended but reduced, Normoactive bowel tones , Tympanitic, Soft Genitourinary: [place] Absent Extremities: no edema Neurological: Grossly Neurologically Intact, Cranial Nerves 2-12 Intact IVs and Medications Medications Reviewed: Medications were reviewed in detail Lab and Diagnostics Result Diagram: 07/06/16 0553 07/08/16 0817 X-Rays, CTs and MRIs PROCEDURE: US GUIDED PARACENTESIS, PRIMARY ([id number]) INDICATIONS: increasing abd distension TECHNIQUE: The indications, alternatives, benefits, risks, and complications of the procedure were explained to the patient. Written informed consent was obtained and placed in the chart. The abdomen and pelvis were examined sonographically, and an appropriate site was chosen for paracentesis. The skin was prepared and draped in the usual sterile fashion, and 1% lidocaine was infiltrated from the skin down through the peritoneal surface. A 19-gauge catheter-covered needle was then introduced into the peritoneal space, the catheter was advanced and the needle was withdrawn, and thereafter peritoneal fluid was withdrawn. The catheter was then removed and a dressing was applied. The fluid was discarded if the clinician did not order diagnostic testing of the fluid. The attending physician was present, and personally performed the procedure. COMPARISON: [facility], , US GUIDED PARACENTESIS, 05/27/2016, 12: 50. FINDINGS: Access site: Midline pelvis Needle: One-Step centesis catheter with introducer needle. Fluid volume and description: 3.6 L of clear peritoneal fluid. Fluid sent for diagnostic testing: Fluid sent for cytology, multiple chemistry panels and therapeutic drainage. Medications: 1% lidocaine for local anaesthesia. Complications: None. IMPRESSION: Successful ultrasound-guided paracentesis. Dictated by: Gunner GARCIA Interpreted: Samantha Dominguez MD on 07/03/2016 at 9:13 Assessment & Plan This is a 61 year old woman with past medical history significant for DM2, hypertension, cirrhosis 2/2 chronic hepatitis C post treatment, and 3 month history of health decline after her hip surgery 3 month ago who presented to the [facility] ED due to weakness and worsening ascites. Acute kidney injury, multifactorial, continues to improve -Baseline Cr normal -Etiology likely due to prerenal azotemia from significant diuresis, patient was very dry on exam -Given her high urine sodium, improvement with IVF unlikely to be hepatorenal syndrome -Paracentesis done yesterday Decompensated Cirrhosis -would restart Lasix -would restart spironolactone 50 mg in AM 25 mg in PM Hypovolemic hyponatremia, resolved We will continue to follow along with you. VTE Mechanical Devices: Intermittant Pneumatic CD Resuscitation Status: CPR: Attempt Resuscitation Attending Statement The patient was seen and examined with the internal medicine resident. She had a large volume paracentesis yesterday she seems to be re-equilibrating fluid. Vladimir continue her spironolactone at 50 mg in the morning and 25 mg in the evening. Michelle Graves DO Jul 08, 2016 10:19 Vega Kim DO Jul 08, 2016 16:29
[2016-07-09] VITALS (10 sets, daily range): BP systolic 125–166; BP diastolic 76–89; PULSE 88–107; RESP 16–20; O2SAT 95–100
--- NOTE | 2016-07-09 02:22 | NUR ---
Activity Patient reports no SOB, no cardiac or distress. Some pain in shoulders, no PRN requested. Abdomen remains distended and firm, patient prefers to sit upright in bed or chair. She uses call light appropriately. Confused/forgetful at times and resistant to medications especially lactulose. On tele, sinus 89 with PVCs. Will continue hourly rounding.
[2016-07-09] MEDS: Insulin LISPRO 300 Unit/3 mL Inj SUBQ SCH ×4 (08:45→21:55)
[2016-07-09] MEDS: Tiotropium 18mcg/Cap 5 Capsule Inhaler Kit INHALATION SCH ×2 (08:45→10:32)
[2016-07-09] MEDS: Insulin GLARgine 100 Unit/mL Syringe SUBQ SCH (08:48)
[2016-07-09] MEDS: Lactulose 20 Gm/30 mL 30 mL Syrup PO SCH ×4 (08:49→21:55)
--- NOTE | 2016-07-09 09:01 | NUR ---
SOMNOLENCE Patient is much more somnolent and drowsy this am than usual. VSS. Allowed vitals and BG to be taken. Nods head in acknowledgement when you are talking to her. Would not open eyes or answer questions or arouse enough to administer AM oral medications. Addendum: 07/09/16 at 1143 by ELZBIETA CAGLE RN MD notified and ordered UA and ammonia level.
--- NOTE | 2016-07-09 11:43 | NUR ---
COGNITION/Decreased activity level Opened eyes, answered questions, took all AM meds except lactulose, for brief time. Didn't remember that we could arouse her earlier in the day. Could hardly stand at edge of bed with FWW on her own. Needed max assistance to transfer to BSC. And then again closed eyes and communicated with 1-2 words while patient was tolieted patient, linen changed and while was patient given a sponge bath. Assisted back to bed with 2 person assist. Will continue hourly rounding.
[2016-07-09 12:35] LABS: APPEARANCE,URINE HAZY (CLEAR,HAZY); COLOR,URINE YELLOW (YELLOW); OCCULT BLOOD,URINE NEGATIVE (NEGATIVE); UROBILINOGEN,URINE NORMAL (NORMAL); YEAST,URINE FEW (NONE SEEN)
--- NOTE | 2016-07-09 17:04 | PCM.PNMED ---
Subjective Date of Service Jul 09, 2016 Subjective ROS limited today 2ndry to patient quit lethargic and barely waking up Exam Vital Signs Vital Sign - Last Date Time Temp Pulse Resp B/P Pulse Ox O2 Delivery O2 Flow Rate FiO2 07/09/16 15:10 36.6 105 20 166/81 97 Room Air Intake and Output 07/08/16 07/08/16 07/09/16 Cumulative From/Thru 15:00 23:00 07:00 07/01/16 11:46 - 07/08/16 19:35 Intake Total 1000 ml 22802 ml Output Total 220 ml 29383 ml Balance 780 ml -2508 ml Intake Oral 1000 ml 9000 ml IV Total 4771 ml Output Urine Total 220 ml 5329 ml Other 88684 ml # Voids 5 # Bowel Movements 1 4 Exam General: very lethargic, No Acute Distress Eyes: Scleral Anicteric Mouth: Mucous Membr Moist/[place] Neck: Supple Chest & Lungs: Chest Wall Normal, Clear to auscultation bilat Cardiovascular: Regular Rate/Rhythm Abdomen: Non-tender, Distended, Normoactive bowel tones, Soft Extremities: Other (1+ LE bilat) Neurological: minimally verbal and very lethargic IVs and Medications Medications Reviewed: Medications were reviewed in detail Lab and Diagnostics Result Diagram: 07/06/16 0553 07/09/16 0600 X-Rays, CTs and MRIs PROCEDURE: US GUIDED PARACENTESIS, PRIMARY ([id number]) INDICATIONS: increasing abd distension TECHNIQUE: The indications, alternatives, benefits, risks, and complications of the procedure were explained to the patient. Written informed consent was obtained and placed in the chart. The abdomen and pelvis were examined sonographically, and an appropriate site was chosen for paracentesis. The skin was prepared and draped in the usual sterile fashion, and 1% lidocaine was infiltrated from the skin down through the peritoneal surface. A 19-gauge catheter-covered needle was then introduced into the peritoneal space, the catheter was advanced and the needle was withdrawn, and thereafter peritoneal fluid was withdrawn. The catheter was then removed and a dressing was applied. The fluid was discarded if the clinician did not order diagnostic testing of the fluid. The attending physician was present, and personally performed the procedure. COMPARISON: [facility], [place], US GUIDED PARACENTESIS, 05/27/2016, 12: 50. FINDINGS: Access site: Midline pelvis Needle: One-Step centesis catheter with introducer needle. Fluid volume and description: 3.6 L of clear peritoneal fluid. Fluid sent for diagnostic testing: Fluid sent for cytology, multiple chemistry panels and therapeutic drainage. Medications: 1% lidocaine for local anaesthesia. Complications: None. IMPRESSION: Successful ultrasound-guided paracentesis. Dictated by: Gunner GARCIA Interpreted: Samantha Dominguez MD on 07/03/2016 at 9:13 Assessment & Plan 61 year old female with Diabetes mellitus, hypertension, cirrhosis, anxiety, depression, who presents to the emergency department from urgent care complaining of worsening generalized weakness. # Acute altered mental status with lethargy. not poa. ? if acute hepatic encephalopathy - check ammonia level - c/w supportive care and f/u #. Acute Kidney Injury . Present on admission. ongoing but improving -Multifactorial : pre renal azotemia from volume loss through diarrhea and diuretics and Hepatorenal syndrome -Baseline creatinine 0.3, initial 3.45 -Received 75 g albumin 07/02,also treated with NS at 80ml/h. 25gm albumin 07/03 , discontinued IV fluid 07/05/16 - appreciate nephrology consult. will f/u w/ recs - Spironolactone per nephrology recs # . Worsening Ascites with acute on chronic abdominal pain due to Cirrhosis ( presumably from history EtOH and Hep C). Present on admission - s/p ultrasound-guided paracentesis on 07/07/16 - Previously treated with ribavirin and Harvoni followed outpatient by Dr Duncan . HCV reportedly undetectable. - per prior notes family plans to take her to daughter's place in [place] upon discharge. They plan to get a new PCP and lens blocker for her cirrhosis around [place]. - repeat abdominal U/S on 07/08 showing: "1. 9 x 9 x 5 mm hyperechoic lesion is now apparent in the left hepatic lobe, possibly a small hepatocellular carcinoma in the setting of known cirrhosis." # Acute UTI, poa -Asymptomatic, pyuria in urine -Urine culture > 100,000 E coli ,pansensitive - on ceftriaxone x 7 days - stopped Abx on 07/08/16 # thrombocytosis due to cirrhosis - stable #. Generalized weakness. Present on admission Likely multifactorial due to acute renal failure, worsening cirrhosis ,UTI, dehydration - treat underlying cause #. Hypertension. Hypotensive on admission - holding Amlodipine 5 mg daily, Lisinopril 40 mg daily and HCTZ #. Type 2 diabetes mellitus - holding Glyburide and Metformin due to cirrhosis and DEYSI - low correction algorithm with Lispro. Glucose uncontrolled. - Lantus 10 units daily. - May resume home metformin and glyburide when DEYSI improves #. Chronic bronchitis related to ongoing tobacco abuse. - DuoNeb (albuterol 2.5 mg plus ipratropium 0.5 mg) by nebulizer as needed. - Symbicort 160/4.5 mcg two inhalations b.i.d. #. Nicotine Dependence. Cessation was discussed and encouraged - Nicotine patch upon request Disposition: was hoping to d/c home with HH today (insurance does not cover SNF as recommended by PT) but d/c deferred 2ndry to altered mental status. VTE Mechanical Devices: Intermittant Pneumatic CD Resuscitation Status: CPR: Attempt Resuscitation Time spent 35 min Ezra Parmar Jul 09, 2016 17:04
[2016-07-10] VITALS (8 sets, daily range): BP systolic 150–157; BP diastolic 79–84; PULSE 79–116; RESP 16–18; O2SAT 93–98
--- NOTE | 2016-07-10 04:08 | NUR ---
Lethargic/Activity From status of lethargic and refusing cares and meds, at 2200 A&O, willing to take PO meds including lactulose- No memory of prior refusals, she does remember MD instructions to DC and return for outpatient care. Refused all dinner items. 10 minute epistaxis at 0300, patient states pain/discomfort but refuses any intervention. IV patent and intact, patient stands and transfers to bedside commode 1 person assist. Son, Oh [place], called for information and was told to contact the [facility] or [facility] social media marketing analyst. Patient states she would like to talk to her daughter Leonid but refuses assistance to place call at this time. Will continue cares Addendum: 07/10/16 at 0415 by TYREE HARRELL RN On Tele, SR 100
[2016-07-10 05:59] LABS: Mean Corpuscular Hemoglobin 28.2 pg (27.0-35.0); Mean Corpuscular Volume 83.6 fL (81-100)
[2016-07-10] MEDS: Tiotropium 18mcg/Cap 5 Capsule Inhaler Kit INHALATION SCH (08:30)
[2016-07-10] MEDS: Lactulose 20 Gm/30 mL 30 mL Syrup PO SCH ×2 (08:30→20:30)
[2016-07-10] MEDS: Insulin GLARgine 100 Unit/mL Syringe SUBQ SCH (10:25)
[2016-07-10] MEDS: Insulin LISPRO 300 Unit/3 mL Inj SUBQ SCH ×4 (10:26→22:00)
--- NOTE | 2016-07-10 11:27 | PCM.PNMED ---
Subjective Date of Service Jul 10, 2016 Subjective Patient's renal function is stable. I have reviewed her follow-up ultrasound and there is a note made of a possible hepatocellular carcinoma which certainly can explain her recurrent ascites. Unfortunately her ascites has once again reaccumulated spelled forward with the primary service for further treatment of this. The other SITUATIONS OF HER BLOOD PRESSURE REMAINS ELEVATED. Exam Vital Signs Vital Sign - Last Date Time Temp Pulse Resp B/P Pulse Ox O2 Delivery O2 Flow Rate FiO2 07/10/16 09:30 37.3 94 18 150/84 95 Room Air Intake and Output 07/09/16 07/09/16 07/10/16 Cumulative From/Thru 15:00 23:00 07:00 07/01/16 11:46 - 07/10/16 06:07 Intake Total 200 ml 175 ml 200 ml 67766 ml Output Total 200 ml 350 ml 500 ml 54601 ml Balance 0 ml -175 ml -300 ml -2983 ml Intake Oral 200 ml 175 ml 200 ml 9575 ml IV Total 4771 ml Output Urine Total 200 ml 350 ml 500 ml 6379 ml Other 45150 ml # Voids 5 # Bowel Movements 1 5 Exam Patient is quite somnolent during my evaluation. Supple without adenopathy thyromegaly or jugular venous distention. Lungs were clear to auscultation somewhat diminished bilaterally. Heart is regular and rhythmic soft systolic murmur. Abdomen is once again quite distended with some attempts ascites noted. Extremities show significant clubbing cyanosis or edema. Lab and Diagnostics Result Diagram: 07/10/16 0507 07/10/16 0507 X-Rays, CTs and MRIs PROCEDURE: US GUIDED PARACENTESIS, PRIMARY ([id number]) INDICATIONS: increasing abd distension TECHNIQUE: The indications, alternatives, benefits, risks, and complications of the procedure were explained to the patient. Written informed consent was obtained and placed in the chart. The abdomen and pelvis were examined sonographically, and an appropriate site was chosen for paracentesis. The skin was prepared and draped in the usual sterile fashion, and 1% lidocaine was infiltrated from the skin down through the peritoneal surface. A 19-gauge catheter-covered needle was then introduced into the peritoneal space, the catheter was advanced and the needle was withdrawn, and thereafter peritoneal fluid was withdrawn. The catheter was then removed and a dressing was applied. The fluid was discarded if the clinician did not order diagnostic testing of the fluid. The attending physician was present, and personally performed the procedure. COMPARISON: [facility], [place], US GUIDED PARACENTESIS, 05/27/2016, 12: 50. FINDINGS: Access site: Midline pelvis Needle: One-Step centesis catheter with introducer needle. Fluid volume and description: 3.6 L of clear peritoneal fluid. Fluid sent for diagnostic testing: Fluid sent for cytology, multiple chemistry panels and therapeutic drainage. Medications: 1% lidocaine for local anaesthesia. Complications: None. IMPRESSION: Successful ultrasound-guided paracentesis. Dictated by: Gunner GARCIA Interpreted: Samantha Dominguez MD on 07/03/2016 at 9:13 Assessment & Plan Impression #1 decompensated cirrhosis and recurrent ascites 2 hypertension with hypertensive heart disease and hypertensive nephrosclerosis Recommendations #1 hour to increase her spironolactone 75 mg twice a day for her blood pressure. If this does not call her blood pressure I would recommend adding labetalol 100 mg twice a day. At this point I feel that she is stable from a renal point of view and will sign off. She did not have any questions or should need change are clear and the patient's condition please do not hesitate to contact us. VTE Mechanical Devices: Intermittant Pneumatic CD Resuscitation Status: CPR: Attempt Resuscitation Vega Kim DO Jul 10, 2016 11:27
--- NOTE | 2016-07-10 15:01 | NUR ---
NUTRITION FOLLOW-UP: ASSESS: 61YO F admit with DEYSI, ascites, nephrology following. DEYSI is improving, nephrology has signed off. Pt continues to be encephalopathic. PO intake variable. Pt had paracentesis on 07/07 with 7.45L removed. PMHX: Cirrhosis, DM, CVA, HTN, Arthritis, COPD DIET: Heart Healthy, Diabetic. PO bites x 1 meal LABS: Reviewed. BUN 31, Cr 1.09, Glu 149, Ca 8.2, AST 95, ALT 39, Albumin 2.5 MEDS: Reviewed. Spironolactone, Inuslin, Lactulose GI: BMx1 07/09 WEIGHT: 67.8 kg BMI: 27.3 kg, admit wt 77.2kg EST.NEEDS: DEYSI, COPD (updated 07/10 using current wt) Kcals: 7502-3543 kcal/day (30-35kcal/kg) Pro: 55-70g/day (.8-1.0g/kg) NUTRITION DIAGNOSIS: (1) Increased energy needs related to increased demand for nutrients as evidenced by Cirrhosis/COPD.--PERSISTS (2) Altered nutrition related laboratory values related to acute kidney injury as evidenced by elevated BUN/creatinine.--IMPROVING INTERVENTION: (1) Will increase Glucerna from once a day to twice per day. MONITOR/EVALUATE:PO intake, wt, labs, POC, nutrition status. Will continue to monitor per moderate nutrition risk guidelines
--- NOTE | 2016-07-10 15:24 | NUR ---
spiritual care: family request for a horse rancher conversation with family. left message for horse rancher and direct contact info with family. no bedside spiritual care needs identified. family appreciative and contacting others
--- NOTE | 2016-07-10 17:12 | NUR ---
Social Work Continued discharge Planning Data & Assessment: School Bus Driver met with patient and patient's son at bedside and notified them that the patient's KATHIA worker was Yemi [phone]. He voiced understatnding and stated that he would notify his sister and aunt that I came by to visit. SW received a call from the patient's nurse after hours stating that the patient's family was requesting a hospice consult. School Bus Driver called [facility] and made the referral. Na with [facility] stated that they would schedule to meet with the patient and family on tomorrow. SW will continue to follow. Plan: Patient and patient's family will meet with [facility] on 07/11/16. [facility] will call the SW department on 07/11/16 with the time that they are able to meet with the family. SW will continue to follow. Kiara Dewey, JAYLEN, ACM
[2016-07-10] MEDS: HYDROmorphone 0.5 mg/0.5 mL iSecure Syringe IVPUSH PRN ×2 (17:16→21:12)
[2016-07-10] MEDS ORDERED: oxyCODONE 1 mg/mL 5 mL Liquid PO PRN (17:30)
--- NOTE | 2016-07-10 19:36 | PCM.PNMED ---
Subjective Date of Service Jul 10, 2016 Subjective Patient resting in bed, appears comfortable. No indication of pain. multiple family members present at bedside. There is some discussion of hospice/comfort care. Exam Vital Signs Vital Sign - Last Date Time Temp Pulse Resp B/P Pulse Ox O2 Delivery O2 Flow Rate FiO2 07/10/16 14:28 36.4 100 18 157/84 93 Room Air Intake and Output 07/09/16 07/09/16 07/10/16 Cumulative From/Thru 15:00 23:00 07:00 07/01/16 11:46 - 07/10/16 06:07 Intake Total 200 ml 175 ml 200 ml 35292 ml Output Total 200 ml 350 ml 500 ml 47678 ml Balance 0 ml -175 ml -300 ml -2983 ml Intake Oral 200 ml 175 ml 200 ml 9575 ml IV Total 4771 ml Output Urine Total 200 ml 350 ml 500 ml 6379 ml Other 46785 ml # Voids 5 # Bowel Movements 1 5 Exam General: Lethargic, responds to painful stimuli only. NAD Head: Normocephalic, atraumatic Chest: clear to auscultation B/L, no wheezing rales or rhonchi Heart: Regular rate and rhythm. Normal S1, S2, no murmurs noted Abdomen: soft, non-tender. Distended. Bowel sounds are normoactive. No guarding or rebound. Extremities: no cyanosis, clubbing. 1-2+ pitting edema in her lower extremities IVs and Medications Medications Reviewed: Medications were reviewed in detail Lab and Diagnostics Result Diagram: 07/10/16 0507 07/10/16 0507 X-Rays, CTs and MRIs PROCEDURE: US GUIDED PARACENTESIS, PRIMARY ([id number]) INDICATIONS: increasing abd distension TECHNIQUE: The indications, alternatives, benefits, risks, and complications of the procedure were explained to the patient. Written informed consent was obtained and placed in the chart. The abdomen and pelvis were examined sonographically, and an appropriate site was chosen for paracentesis. The skin was prepared and draped in the usual sterile fashion, and 1% lidocaine was infiltrated from the skin down through the peritoneal surface. A 19-gauge catheter-covered needle was then introduced into the peritoneal space, the catheter was advanced and the needle was withdrawn, and thereafter peritoneal fluid was withdrawn. The catheter was then removed and a dressing was applied. The fluid was discarded if the clinician did not order diagnostic testing of the fluid. The attending physician was present, and personally performed the procedure. COMPARISON: [facility], , US GUIDED PARACENTESIS, 05/27/2016, 12: 50. FINDINGS: Access site: Midline pelvis Needle: One-Step centesis catheter with introducer needle. Fluid volume and description: 3.6 L of clear peritoneal fluid. Fluid sent for diagnostic testing: Fluid sent for cytology, multiple chemistry panels and therapeutic drainage. Medications: 1% lidocaine for local anaesthesia. Complications: None. IMPRESSION: Successful ultrasound-guided paracentesis. Dictated by: Gunner GARCIA Interpreted: Samantha Dominguez MD on 07/03/2016 at 9:13 Assessment & Plan 61 year old female with Diabetes mellitus, hypertension, cirrhosis, anxiety, depression, who presents to the emergency department from urgent care complaining of worsening generalized weakness. # Acute altered mental status with lethargy. not poa. ? if acute hepatic encephalopathy -Ammonia level 40 yesterday. - c/w supportive care and f/u #. Acute Kidney Injury . Present on admission. ongoing but improving -Multifactorial : pre renal azotemia from volume loss through diarrhea and diuretics and Hepatorenal syndrome -Baseline creatinine 0.3, initial 3.45 -Received 75 g albumin 07/02,also treated with NS at 80ml/h. 25gm albumin 07/03 , discontinued IV fluid 07/05/16 - appreciate nephrology consult. will f/u w/ recs - Spironolactone per nephrology recs # . Worsening Ascites with acute on chronic abdominal pain due to Cirrhosis ( presumably from history EtOH and Hep C). Present on admission - s/p ultrasound-guided paracentesis on 07/07/16 - Previously treated with ribavirin and Harvoni followed outpatient by Dr Duncan . HCV reportedly undetectable. - per prior notes family plans to take her to daughter's place in [place] upon discharge. They plan to get a new PCP and orthopedic surgeon for her cirrhosis around [place]. - repeat abdominal U/S on 07/08 showing: "1. 9 x 9 x 5 mm hyperechoic lesion is now apparent in the left hepatic lobe, possibly a small hepatocellular carcinoma in the setting of known cirrhosis." # Acute UTI, poa -Asymptomatic, pyuria in urine -Urine culture > 100,000 E coli ,pansensitive - on ceftriaxone x 7 days - stopped Abx on 07/08/16 # thrombocytosis due to cirrhosis - stable #. Generalized weakness. Present on admission Likely multifactorial due to acute renal failure, worsening cirrhosis ,UTI, dehydration #. Hypertension. Hypotensive on admission - holding Amlodipine 5 mg daily, Lisinopril 40 mg daily and HCTZ #. Type 2 diabetes mellitus - holding Glyburide and Metformin due to cirrhosis and DEYSI - low correction algorithm with Lispro. Glucose uncontrolled. - Lantus 10 units daily. - May resume home metformin and glyburide when DEYSI improves #. Chronic bronchitis related to ongoing tobacco abuse. - DuoNeb (albuterol 2.5 mg plus ipratropium 0.5 mg) by nebulizer as needed. - Symbicort 160/4.5 mcg two inhalations b.i.d. #. Nicotine Dependence. Cessation was discussed and encouraged - Nicotine patch upon request Family discussing possible comfort measures only. Palliative care was consulted. VTE Mechanical Devices: Intermittant Pneumatic CD Resuscitation Status: CPR: Attempt Resuscitation Adam Duenas DO Jul 10, 2016 19:36
[2016-07-10] MEDS ORDERED: HYDROmorphone 0.5 mg/0.5 mL iSecure Syringe IVPUSH PRN (20:00)
[2016-07-10] MEDS ORDERED: Ondansetron 2 mg/mL 2 mL Inj IVPUSH PRN (20:00)
[2016-07-10] MEDS ORDERED: MetoCLOpramide 5 mg/mL 2 mL Inj IVPUSH PRN (20:00)
[2016-07-10] MEDS ORDERED: HYDROmorphone PCA 0.2 mg/mL 30 mL Inj IV PRN (20:00)
--- NOTE | 2016-07-10 20:56 | NUR ---
Decline in status Patient this am was found sitting in bedside chair fairly lethargic answers very little questions. Pt did wake up slightly took most am meds and even asked for pain med. Pt ate few bites of food. Pt assisted back to bed to rest and as day progressed patient became more and more lethargic. Family at bedside and spoke with nurse and then and decided patient needs to be on palliative/hospice care and just made comfortable at this time. Family with lots of questions. Family concerned about pain control as pt will be referred tomorrow for hospice but tonight would have to rely on no continuos pain meds. Hospitalist called and will order navy senior officer for pain control.
[2016-07-10] MEDS ORDERED: 0.9% Sodium Chloride 250 ML ONE (22:10)
[2016-07-10] MEDS ORDERED: NS IV PRN ×2 (22:30)
[2016-07-10] MEDS ORDERED: HYDROMORPHONE HP IV PRN ×2 (22:30)
[2016-07-11 00:33] VITALS: BP 122/68; PULSE 97; RESP 16; O2SAT 94
[2016-07-11 05:53] VITALS: BP 137/71; PULSE 101; RESP 20; O2SAT 92
[2016-07-11 05:54] VITALS: PULSE 92
[2016-07-11] MEDS: HYDROmorphone 0.5 mg/0.5 mL iSecure Syringe IVPUSH PRN (06:32)
[2016-07-11] MEDS: Insulin LISPRO 300 Unit/3 mL Inj SUBQ SCH ×2 (08:00→12:00)
--- NOTE | 2016-07-11 08:16 | NUR ---
Pain Patient was too lethargic to push the button on her ASSOCIATE ACCOUNTANT. Notified Dr. Rothman and she gave an order to put patient on dilaudid continuous drip at 0.1 mg/hr. Patient seemed to still be in pain as the night progressed. Night hospitalist was paged, but never returned call.
[2016-07-11] MEDS: Tiotropium 18mcg/Cap 5 Capsule Inhaler Kit INHALATION SCH (08:30)
[2016-07-11] MEDS: Insulin GLARgine 100 Unit/mL Syringe SUBQ SCH (08:30)
[2016-07-11] MEDS: Lactulose 20 Gm/30 mL 30 mL Syrup PO SCH (08:30)
[2016-07-11 09:49] VITALS: PULSE 103
--- NOTE | 2016-07-11 09:54 | NUR ---
lethargic and change in condition Notified doctor r/t patient condition that patient has refused to check blood sugars and too sleepy to give all morning PO medications. family is at bed side and awaiting speak to palliative care. doctor aware that patient is on Continuous pain management via IV.
--- NOTE | 2016-07-11 14:10 | NUR ---
Discharge to home hospice patient is lethargic and sleepy. patient will be transferred home via ambulance r/t unable to sit up in wheel chair or poor trunk control. family/daughter at he bed side. Reviewed all discharge paper work including discharge medications with family/daughter r/t patient is too sleepy/lethargic. Daughter understood discharge instructions and states," we will be leaving here around 3 and we will be meeting hospice around 430 today at my home."
--- NOTE | 2016-07-11 14:47 | NUR ---
Social Work: Discharge Data & Assessment: Sales Operations Coordinator spoke with [facility] and was notified that currently they are not able to cover the patient because the patient lives in [place]. Sales Operations Coordinator notified patient's daughter, Leonid huizar [phone], and she was in agreement with the patient being referred to [facility]. Sales Operations Coordinator faxed patient's clinical to [facility]. SW received a call from nurse Ram at [facility] stating that they would beable to admit the patient at the daughter's home, [address] [place], [place] [address], at 4:30. SW notified patient's daughter Leonid Huizar. Patient meets BLS criteria and will discharge via [facility] at 3:00 p.m. Patient's daughter, Leonid Huizar, was at bedside and in agreement with the plan. Patient's discharge information was faxed to [facility]. SW will continue to follow. Plan: Patient will discharge to her daughter, Leonid Huizar's, home on hospice. Patient will be transport BLS with [facility]. SW will continue to follow. Ishmael Dewey LMSW, ARACELI Addendum: 07/11/16 at 1506 by ISHMAEL DEWEY [facility] [phone]. [phone].
--- NOTE | 2016-07-11 15:08 | NUR ---
Discharged Patient discharged via stretcher on ambulance at 1500. family and daughter at bed side and will notify hospice r/t IV access in her arm for pain management to hospice.
--- NOTE | 2016-07-11 21:24 | PCM.DC.MED ---
Discharge Summary Date of Service Jul 11, 2016 Dates of Hospitalization Date of Hospital Admission Jul 01, 2016 at 16:31 Date of Discharge: Jul 11, 2016 Providers: Admitting Physician: Toi Velasco MD Primary Care Physician: Deedee Sandy MD Attending Physician: Toi Velasco MD Diagnosis at Time of Discharge Diagnosis at Time of Discharge End-stage liver disease Hepatic encephalopathy Ascites Procedures XRay, CTs & MRIs PROCEDURE: US GUIDED PARACENTESIS, PRIMARY ([id number]) INDICATIONS: increasing abd distension TECHNIQUE: The indications, alternatives, benefits, risks, and complications of the procedure were explained to the patient. Written informed consent was obtained and placed in the chart. The abdomen and pelvis were examined sonographically, and an appropriate site was chosen for paracentesis. The skin was prepared and draped in the usual sterile fashion, and 1% lidocaine was infiltrated from the skin down through the peritoneal surface. A 19-gauge catheter-covered needle was then introduced into the peritoneal space, the catheter was advanced and the needle was withdrawn, and thereafter peritoneal fluid was withdrawn. The catheter was then removed and a dressing was applied. The fluid was discarded if the clinician did not order diagnostic testing of the fluid. The attending physician was present, and personally performed the procedure. COMPARISON: [facility], , US GUIDED PARACENTESIS, 05/27/2016, 12: 50. FINDINGS: Access site: Midline pelvis Needle: One-Step centesis catheter with introducer needle. Fluid volume and description: 3.6 L of clear peritoneal fluid. Fluid sent for diagnostic testing: Fluid sent for cytology, multiple chemistry panels and therapeutic drainage. Medications: 1% lidocaine for local anaesthesia. Complications: None. IMPRESSION: Successful ultrasound-guided paracentesis. Dictated by: Gunner Vicente [facility] Interpreted: Samantha Dominguez MD on 07/03/2016 at 9:13 Brief History This is a 61 year old woman with past medical history significant for DM2, hypertension, cirrhosis 2/2 chronic hepatitis C post treatment, and 3 month history of health decline after her hip surgery 3 month ago who presented to the [facility] ED due to weakness and worsening ascites. The nephrology service is consulted due to acute kidney injury. The patient is a poor historian and unsure of much of her history. She has noticed that after he hip surgery she has had worsening issues with fluid and has had increasing abdominal distention and has gained weight. The patient has had one paracentesis, she is unsure when , but the records suggest May 27 2016. No fluid studies are available. The patient has recently had her diuretics adjusted recently. Her lasix has been increased to 40 mg daily. She is also on spironolactone 50 mg, HCTZ 12.5 mg. The patient denies any fevers, chills, nausea, or vomiting. She noted some diarrhea. She denies any dysuria or decreased urine output. The patient is very distressed and tearful. Hospital Course 61 year old female with Diabetes mellitus, hypertension, cirrhosis, anxiety, depression, who presents to the emergency department from urgent care complaining of worsening generalized weakness. Patient continued to decline mentally through her hospital stay and it was eventually decided by the family that her goals of care would be best suited with hospice care. Palliative care was consulted. She was discharged home with home hospice. She will be followed medically by hospice. Delineated problem list # Acute altered mental status with lethargy. not poa. ? if acute hepatic encephalopathy -Ammonia level 40 yesterday. - c/w supportive care and f/u #. Acute Kidney Injury . Present on admission. ongoing but improving -Multifactorial : pre renal azotemia from volume loss through diarrhea and diuretics and Hepatorenal syndrome -Baseline creatinine 0.3, initial 3.45 -Received 75 g albumin 07/02,also treated with NS at 80ml/h. 25gm albumin 07/03 , discontinued IV fluid 07/05/16 - appreciate nephrology consult. will f/u w/ recs - Spironolactone per nephrology recs # . Worsening Ascites with acute on chronic abdominal pain due to Cirrhosis ( presumably from history EtOH and Hep C). Present on admission - s/p ultrasound-guided paracentesis on 07/07/16 - Previously treated with ribavirin and Harvoni followed outpatient by Dr Duncan . HCV reportedly undetectable. - per prior notes family plans to take her to daughter's place in [place] upon discharge. They plan to get a new PCP and liability claims representative for her cirrhosis around [place]. - repeat abdominal U/S on 07/08 showing: "1. 9 x 9 x 5 mm hyperechoic lesion is now apparent in the left hepatic lobe, possibly a small hepatocellular carcinoma in the setting of known cirrhosis." # Acute UTI, poa -Asymptomatic, pyuria in urine -Urine culture > 100,000 E coli ,pansensitive - on ceftriaxone x 7 days - stopped Abx on 07/08/16 # thrombocytosis due to cirrhosis - stable #. Generalized weakness. Present on admission Likely multifactorial due to acute renal failure, worsening cirrhosis ,UTI, dehydration #. Hypertension. Hypotensive on admission - holding Amlodipine 5 mg daily, Lisinopril 40 mg daily and HCTZ #. Type 2 diabetes mellitus - holding Glyburide and Metformin due to cirrhosis and DEYSI - low correction algorithm with Lispro. Glucose uncontrolled. - Lantus 10 units daily. - May resume home metformin and glyburide when DEYSI improves #. Chronic bronchitis related to ongoing tobacco abuse. - DuoNeb (albuterol 2.5 mg plus ipratropium 0.5 mg) by nebulizer as needed. - Symbicort 160/4.5 mcg two inhalations b.i.d. #. Nicotine Dependence. Cessation was discussed and encouraged - Nicotine patch upon request Exam Vital Signs (Last) Date Time Temp Pulse Resp B/P Pulse Ox O2 Delivery O2 Flow Rate FiO2 07/11/16 09:49 103 07/11/16 05:53 36.8 20 137/71 92 Room Air Test 07/01/16 13:15 07/02/16 09:30 07/02/16 16:00 07/04/16 10:48 Hemoglobin A1c 6.9% (4.8-5.6) Hold Vazquez Top Tube Received (Received) Urine Random Creatinine 187mg/dL (15-278) Urine Random Total Protein 49mg/dL (0-15) Urine Random Sodium 15mEq/L Body Fluid Source Peritoneal fluid Body Fluid Color Yellow (Clear) Body Fluid Appearance Clear Body Fluid WBC 43/mm3 Body Fluid RBC 2350/mm3 Body Fluid Polynuclear WBCs 2% Body Fluid Lymphocytes 45% Body Fluid Monocytes 18% Body Fluid Eosinophils 0% Body Fluid Basophils 0% Body Fluid Total Protein 3.2g/dL Body Fluid Albumin 1.2g/dL (.) Body Fluid Total Bilirubin 0.8mg/dL Body Fluid Lactate Dehydrogenase 78U/L Peritoneal Fluid Glucose 137mg/dL Phosphorus Level 3.3mg/dL (2.5-4.9) Magnesium Level 1.6mg/dL (1.6-2.6) Test 07/05/16 02:50 07/06/16 05:53 07/09/16 11:20 07/09/16 11:35 Activated Partial Thromboplast Time 29.2sec (22.8-33.0) Neutrophils (%) (Auto) 73.0% (40-74) Lymphocytes (%) (Auto) 11.6% (14-46) Monocytes (%) (Auto) 13.2% (4-12) Eosinophils (%) (Auto) 1.6% (0-5) Basophils (%) (Auto) 0.4% (0-3) Prothrombin Time 12.4sec (8.1-12.5) Prothromb Time International Ratio 1.16ratio Urine Color Yellow (YELLOW) Urine Appearance Hazy (CLEAR,HAZY) Urine pH 6.0 (5.0-8.0) Urine Specific Mathews 1.015 (1.003-1.035) Urine Protein Negativemg/dL (NEG,TRACE) Urine Glucose (UA) Negativemg/dL (NEGATIVE) Urine Ketones Tracemg/dL (NEGATIVE) Urine Occult Blood Negative (NEGATIVE) Urine Nitrite Negative (NEGATIVE) Urine Bilirubin Negative (NEGATIVE) Urine Urobilinogen Normalmg/dL (NORMAL) Urine Leukocyte Esterase Trace (NEGATIVE) Urine RBC 0-2/hpf (0-2) Urine WBC 0-5/hpf (0-5) Urine Epithelial Cells Occasional/hpf (NONE-MOD) Urine Crystals None seen (NONE SEEN) Urine Bacteria None/hpf (NONE-FEW) Urine Hyaline Casts None/lpf (NONE) Urine Granular Casts None seen (NONE SEEN) Urine Waxy Casts None seen (NONE SEEN) Urine Red Blood Cell Casts None seen (NONE SEEN) Urine White Blood Cell Casts None seen (NONE SEEN) Urine Mucus None seen (None Seen) Urine Trichomonas None seen (NONE SEEN) Urine Yeast Few (NONE SEEN) Urinalysis Comment None Urine Culture Reflexed Indicated Ammonia 40ug/dL (18-53) Test 07/10/16 05:07 White Blood Count 5.3th/mm3 (3.8-10.1) Red Blood Count 3.65mil/mm3 (3.90-5.20) Hemoglobin 10.3g/dL (12.0-15.6) Hematocrit 30.5% (35.0-46.0) Mean Corpuscular Volume 83.6fL (81-100) Mean Corpuscular Hemoglobin 28.2pg (27.0-35.0) Mean Corpuscular Hemoglobin Concent 33.8% (32.0-37.0) Red Cell Distribution Width 17.2% (12.3-15.4) Platelet Count 145bil/L (150-400) Sodium Level 139mEq/L (134-144) Potassium Level 4.0mEq/L (3.5-5.2) Chloride Level 101mEq/L (97-108) Carbon Dioxide Level 25mmol/L (18-29) Blood Urea Nitrogen 31mg/dL (8-27) Creatinine 1.09mg/dL (0.57-1.00) Estimat Glomerular Filtration Rate 73mL/min (>59) Glucose Level 149mg/dL (60-99) Calcium Level 8.2mg/dL (8.5-10.1) Total Bilirubin 0.4mg/dL (0.0-1.2) Aspartate Amino Transf (AST/SGOT) 95U/L (0-50) Alanine Aminotransferase (ALT/SGPT) 39U/L (0-32) Alkaline Phosphatase 78U/L (25-165) Total Protein 5.6g/dL (6.4-8.4) Albumin 2.5g/dL (3.4-5.0) Discharge Medications Discharge Medications Furosemide (Furosemide) 20 Mg Tab 20 MG PO BID (Reported) Hydrochlorothiazide (Hydrochlorothiazide) 25 Mg Tablet 25 MG PO DAILY (Reported ) Sertraline HCl (Sertraline) 100 Mg Tablet 200 MG PO HS (Reported) Tiotropium [place] (Spiriva) 18 Mcg Cap.w.dev 18 MCG IH DAILY (Reported) As needed Albuterol HFA (Proair HFA) 8.5 Gm Hfa.aer.ad 2 PUFFS INHALATION Q4H PRN PRN For Shortness of Breath (Reported) Alprazolam (Alprazolam) 0.5 Mg Tablet 0.25 MG PO QID PRN PRN For Anxiety ( Reported) oxyCODONE (oxyCODONE) 5 Mg Tablet 7.5 MG PO QID PRN PRN For Pain (Reported) Time spent 40 minutes spent discharging this patient Adam Duenas DO Jul 11, 2016 21:24
== END 2016-07-11 15:00 | disposition hospice, home (50) | DRG 264 ==
LOC: SED 11:40 → OSC 16:31
PROVIDERS: ADMIT Hospitalist; ATTEND Hospitalist
PROC: 0W9G3ZX Drainage of Peritoneal Cavity, Percutaneous Approach, Diagnostic (ICD-10-PCS; principal; 2016-07-02)
PROC: 0W9G3ZZ Drainage of Peritoneal Cavity, Percutaneous Approach (ICD-10-PCS; 2016-07-07)
DX: K71.51 Toxic liver disease with chronic active hepatitis with ascites (principal); N17.9 Acute kidney failure, unspecified; N39.0 Urinary tract infection, site not specified; E87.1 Hypo-osmolality and hyponatremia; E11.9 Type 2 diabetes mellitus without complications; I10 Essential (primary) hypertension; F32.9 Major depressive disorder, single episode, unspecified; B96.20 Unspecified Escherichia coli [E. coli] as the cause of diseases classified elsewhere; K72.10 Chronic hepatic failure without coma; B18.2 Chronic viral hepatitis C; F41.9 Anxiety disorder, unspecified; F17.210 Nicotine dependence, cigarettes, uncomplicated; I73.9 Peripheral vascular disease, unspecified; J41.0 Simple chronic bronchitis; D47.3 Essential (hemorrhagic) thrombocythemia